=== PATIENT | female | born 1930 | race African-American/Black ===

== ENCOUNTER 2017-03-03 14:50 | Emergency (ER) | payer MEDICARE, MEDICAID ==
--- NOTE | 2017-03-03 16:08 | ER Document Report ---
ED ENT - General Mode of Arrival: Medic Information source: Patient, [facility] Records, Outside Facility Records TRAVEL OUTSIDE OF THE [place] IN LAST 30 DAYS: No - HPI Patient complains to provider of: Throat problem Onset: Other - 4 days ago Onset/Duration: Gradual, Worse Location of pain: Throat Associated symptoms: Difficulty swallowing, Sore throat <FANTASMA MARIN - Last Filed: 03/03/17 21:03> <AMENA SERRANO - Last Filed: 03/03/17 22:25> - General Chief Complaint: Sore Throat Stated Complaint: SORE THROAT Notes: Patient is an 86-year-old female presenting to the emergency department from [facility] complaining of a sore throat onset 4 days ago. Patient also admits to difficulty swallowing. Patient denies any difficulty breathing. Patient has a history of dementia. (FANTASMA MARIN) - Related Data Allergies/Adverse Reactions: No Known Allergies Allergy (Verified 03/03/17 16:03) Past Medical History - Social History Smoking Status: Unknown if Ever Smoked Frequency of alcohol use: None Drug Abuse: None Family History: Reviewed & Not Pertinent - Past Medical History Cardiac Medical History: Reports: Hx Congestive Heart Failure, Hx Coronary Artery Disease, Hx Hypertension Pulmonary Medical History: Reports: Hx Bronchitis, Hx Pneumonia - hx Endocrine Medical History: Reports: Hx Diabetes Mellitus Type 2 Renal/ Medical History: Reports: Hx Renal Insufficiency Musculoskeltal Medical History: Reports Hx Arthritis Past Surgical History: Reports: Hx Appendectomy, Hx Hysterectomy, Hx Orthopedic Surgery - L knee - Immunizations Hx Diphtheria, Pertussis, Tetanus Vaccination: No - refused <FANTASMA MARIN - Last Filed: 03/03/17 21:03> Review of Systems - Review of Systems Constitutional: No symptoms reported EENT: See HPI, Throat pain Cardiovascular: No symptoms reported Respiratory: No symptoms reported Gastrointestinal: No symptoms reported Genitourinary: No symptoms reported Female Genitourinary: No symptoms reported Musculoskeletal: No symptoms reported Skin: No symptoms reported Hematologic/Lymphatic: No symptoms reported Neurological/Psychological: No symptoms reported <FANTASMA MARIN - Last Filed: 03/03/17 21:03> Physical Exam - General General appearance: Alert - HEENT Head: Normocephalic, Atraumatic Eyes: Normal Pupils: PERRL Mouth/Lips: Other - Normal Lower dentition Pharynx: Normal. No: Erythema, Exudate, Peritonsillar abscess Neck: Neck mass - Palpable submandibular mass, no cellulitis or crepitus - Respiratory Respiratory status: No respiratory distress Breath sounds: Other - No trismus. No: Stridor - Cardiovascular Rhythm: Regular Heart sounds: Normal auscultation Murmur: No - Abdominal Inspection: Obese Tenderness: Nontender - Back Back: Normal, Nontender - Extremities General upper extremity: Normal inspection, Nontender General lower extremity: Normal inspection, Nontender - Neurological Neuro grossly intact: Yes Cognition: Normal Orientation: AAOx4 [place] Coma Scale Eye Opening: Spontaneous [place] Coma Scale Verbal: Oriented [place] Coma Scale Motor: Obeys Commands [place] Coma Scale Total: 15 Speech: Normal - Psychological Associated symptoms: Normal affect, Normal mood - Skin Skin Temperature: Warm Skin Moisture: Dry Skin Color: Normal <FANTASMA MARIN - Last Filed: 03/03/17 21:03> Course - Laboratory Result Diagrams: 03/03/17 16:40 03/03/17 16:40 <FANTASMA MARIN - Last Filed: 03/03/17 21:03> - Laboratory Result Diagrams: 03/03/17 16:40 03/03/17 16:40 <AMENA SERRANO - Last Filed: 03/03/17 22:25> - Re-evaluation Re-evalutation: 03/03/17 22:24 Patient presents emergency per with chief complaint of 4 day history of sore throat. She has palpable submandibular swelling on the right no trismus stridor or drooling and no uvular swelling or posterior pharyngeal swelling no difficulty maintaining her airway to auscultation bilaterally. No concerns for Maximiliano angina. CT scan shows submandibular swelling with adenopathy. She was given clindamycin. Airway is intact. Discharged on clindamycin call ENT in the a.m. for one to 2 day follow-up and discuss reasons for ED return sooner discuss this with family members as well (AMENA SERRANO) - Vital Signs Vital signs: Temp Pulse Resp BP Pulse Ox 97.7 F 71 20 158/88 H 97 03/03/17 18:27 03/03/17 18:27 03/03/17 18:27 03/03/17 18:27 03/03/17 18:27 - Laboratory Laboratory results interpreted by me: 03/03/17 03/03/17 16:40 16:40 RDW 14.8 H Carbon Dioxide 31 H Glucose 148 H Discharge <FANTASMA MARIN - Last Filed: 03/03/17 21:03> <AMENA SERRANO - Last Filed: 03/03/17 22:25> - Discharge Clinical Impression: enlarged right submandibular gland Condition: Stable Disposition: HOME, SELF-CARE Additional Instructions: Here your CT scan shows enlargement of your right submandibular gland measuring 3 cm in diameter with swelling of the lymph nodes. We are going to give you information to call the ear nose and throat doctor tomorrow to follow up with them in 1-2 days. In addition to that we've given you antibiotics. Return for increasing worsening or new symptoms [facility] Address: [address] [place] [id number] When you call to set up appointment, request the [place], [place] office if desired. They will be able to give you the information for that office. Prescriptions: Clindamycin HCl 300 mg PO BID #21 capsule Referrals: IBIS ALCANTAR MD [Primary Care Provider] - Follow up tomorrow Scribe Attestation: 03/03/17 21:04 (FANTASMA MARIN) 03/03/17 20:59 I personally performed the services described in the documentation reviewed the documentation recorded by my scribe in my presence and it accurately and completely records my words and actions (AMENA SERRANO) Scribe Documentation - Scribe Written by Scribe:: Fantasma Marin 03/03/2017 1607 acting as scribe for :: Kris <FANTASMA MARIN - Last Filed: 03/03/17 21:03>
[2017-03-03] MEDS ORDERED: CLINDAMYCIN 600 MG/D5W RTU 50 ML IV ONE (16:16)
[2017-03-03 16:51] LABS: ABSOLUTE EOSINOPHILS # (AUTO) 0.2 10^3/uL (0.0-0.6); ABSOLUTE LYMPHOCYTES (AUTO) 2.7 10^3/uL (0.5-4.7); ABSOLUTE MONOCYTES (AUTO) 0.7 10^3/uL (0.1-1.4); ABSOLUTE NEUT (AUTO) 6.2 10^3/uL (1.7-8.2); BASOPHILS % (AUTO) 0.3 % (0-2); EOSINOPHILS % (AUTO) 1.7 % (0-6); HEMATOCRIT 37.2 % (36.0-47.0); HEMOGLOBIN 12.6 g/dL (12.0-15.5); HGB HCT DIFFERENCE 0.6; LYMPHOCYTES % (AUTO) 27.8 % (13-45); MEAN CORPUSCULAR HEMOGLOBIN 29.9 pg (27.0-33.4); MEAN CORPUSCULAR HGB CONC 33.8 g/dL (32.0-36.0); MEAN CORPUSCULAR VOLUME 88 fl (80-97); MONOCYTES % (AUTO) 6.9 % (3-13); RED BLOOD COUNT 4.21 10^6/uL (3.72-5.28); RED CELL DISTRIBUTION WIDTH 14.8 % (11.5-14.0); SEGMENTED NEUTROPHILS % (AUTO) 63.3 % (42-78); WHITE BLOOD COUNT 9.8 10^3/uL (4.0-10.5)
[2017-03-03 17:16] LABS: ANION GAP 9 (5-19); BLOOD UREA NITROGEN 14 mg/dL (7-20); CALCIUM 9.3 mg/dL (8.4-10.2); CARBON DIOXIDE 31 mmol/L (22-30); CHLORIDE 104 mmol/L (98-107); CREATININE RESULT 0.82 mg/dL (0.52-1.25); GLUCOSE 148 mg/dL (75-110); POTASSIUM 4.4 mmol/L (3.6-5.0); SODIUM 144.3 mmol/L (137-145)
[2017-03-04 01:26] VITALS: BP 149/87
== END 2017-03-04 01:10 | disposition home or self-care (01) ==
LOC: ER 14:50
DX: R59.0 Localized enlarged lymph nodes (principal); J02.9 Acute pharyngitis, unspecified; R13.10 Dysphagia, unspecified; I25.10 Atherosclerotic heart disease of native coronary artery without angina pectoris; E11.9 Type 2 diabetes mellitus without complications; I10 Essential (primary) hypertension
CPT/HCPCS: 36415; 70491; 80048; 85025; 87070; 87880; 96365; 99284

== ENCOUNTER 2017-03-09 12:20 | Emergency (ER) | payer MEDICARE, MEDICAID ==
[2017-03-09] MEDS ORDERED: DEXAMETHASONE SOD PHOS INJ 10 MG/1 ML VIAL IM ONE (12:37)
--- NOTE | 2017-03-09 12:40 | ER Document Report ---
ED General - General Chief Complaint: Sore Throat Stated Complaint: SORE THROAT Time Seen by Provider: 03/09/17 12:29 TRAVEL OUTSIDE OF THE U.S. IN LAST 30 DAYS: No - Related Data Allergies/Adverse Reactions: No Known Allergies Allergy (Verified 03/03/17 16:03) Past Medical History - Social History Family History: Reviewed & Not Pertinent - Past Medical History Cardiac Medical History: Reports: Hx Congestive Heart Failure, Hx Coronary Artery Disease, Hx Hypertension Pulmonary Medical History: Reports: Hx Bronchitis, Hx Pneumonia - hx Endocrine Medical History: Reports: Hx Diabetes Mellitus Type 2 Renal/ Medical History: Reports: Hx Renal Insufficiency Musculoskeltal Medical History: Reports Hx Arthritis Past Surgical History: Reports: Hx Appendectomy, Hx Hysterectomy, Hx Orthopedic Surgery - L knee - Immunizations Hx Diphtheria, Pertussis, Tetanus Vaccination: No - refused
--- NOTE | 2017-03-09 12:48 | ER Document Report ---
ED General - General Chief Complaint: Sore Throat Stated Complaint: SORE THROAT Time Seen by Provider: 03/09/17 12:29 TRAVEL OUTSIDE OF THE [place] IN LAST 30 DAYS: No - HPI Patient complains to provider of: sore throat Notes: Patient coming in from local longterm facility for sore throat. Patient recently seen found to have a large right submandibular gland and has ENT appointment on . Unclear what patient return to the ER however EMS states still complaining of sore throat so she went swallowing her medications. We're contacted by the patient's family before patient arrived states patient has implemented do not wish for any further workup to be done for the patient be transferred back to longterm. Upon my evaluation patient shows no signs of trismus swallowing her oral secretions no signs of airway compromise. Patient is speaking in a normal tone of voice and only complaining that she is cold and requesting a blanket. - Related Data Allergies/Adverse Reactions: No Known Allergies Allergy (Verified 03/03/17 16:03) Past Medical History - Social History Smoking Status: Never Smoker Chew tobacco use (# tins/day): No Frequency of alcohol use: None Drug Abuse: None Family History: Reviewed & Not Pertinent - Past Medical History Cardiac Medical History: Reports: Hx Congestive Heart Failure, Hx Coronary Artery Disease, Hx Hypertension Pulmonary Medical History: Reports: Hx Bronchitis, Hx Pneumonia - hx Endocrine Medical History: Reports: Hx Diabetes Mellitus Type 2 Renal/ Medical History: Reports: Hx Renal Insufficiency Musculoskeltal Medical History: Reports Hx Arthritis Past Surgical History: Reports: Hx Appendectomy, Hx Hysterectomy, Hx Orthopedic Surgery - L knee - Immunizations Hx Diphtheria, Pertussis, Tetanus Vaccination: No - refused Review of Systems - Review of Systems Constitutional: No symptoms reported EENT: Throat pain Cardiovascular: No symptoms reported Respiratory: No symptoms reported Gastrointestinal: No symptoms reported Genitourinary: No symptoms reported Female Genitourinary: No symptoms reported Musculoskeletal: No symptoms reported Skin: No symptoms reported Hematologic/Lymphatic: No symptoms reported Neurological/Psychological: No symptoms reported Physical Exam - Vital signs Interpretation: Normal - General General appearance: Appears well, Alert - HEENT Head: Normocephalic, Atraumatic Eyes: Normal Eyelashes: Normal Pupils: PERRL Ears: Normal External canal: Normal Tympanic membrane: Normal Nasal: Normal Pharynx: Normal Neck: Normal Notes: Patient was seen and evaluated a large right submandibular gland palpated no signs of skin changes no signs of Maximiliano's angina no elevation home. Or airway is patent signs of respiratory are airway compromise. - Respiratory Respiratory status: No respiratory distress Chest status: Nontender Breath sounds: Normal Chest palpation: Normal - Cardiovascular Rhythm: Regular Heart sounds: Normal auscultation Murmur: No - Abdominal Inspection: Normal Distension: No distension Bowel sounds: Normal Tenderness: Nontender Organomegaly: No organomegaly - Back Back: Normal, Nontender - Extremities General upper extremity: Normal inspection, Nontender, Normal color, Normal ROM , Normal temperature General lower extremity: Normal inspection, Nontender, Normal color, Normal ROM , Normal temperature, Normal weight bearing. No: Cristina's sign - Neurological Neuro grossly intact: Yes Cognition: Normal Orientation: AAOx4 [place] Coma Scale Eye Opening: Spontaneous [place] Coma Scale Verbal: Oriented [place] Coma Scale Motor: Obeys Commands [place] Coma Scale Total: 15 Speech: Normal Motor strength normal: LUE, RUE, LLE, RLE Sensory: Normal - Psychological Associated symptoms: Normal affect, Normal mood - Skin Skin Temperature: Warm Skin Moisture: Dry Skin Color: Normal Course - Re-evaluation Re-evalutation: 03/09/17 18:38 Per family wishes no other studies were performed. Patient does not seem to be any obvious distress at this time. Patient was given a dose Decadron to help decrease swelling. Patient was discharged back to the longterm follow-up with ENT as scheduled. Discharge - Discharge Clinical Impression: Enlargement of submandibular gland, Sore throat Condition: Good Disposition: HOME, SELF-CARE Additional Instructions: Patient was seen and evaluated today. No acute distress. Patient was able to tolerate oral here. There is no signs of any choking. Patient does complain of sore throat we will give the patient a dose of steroids to aid her sore throat. Patient did recently have a workup performed here showing enlargement of the right submandibular gland and should be currently taking clindamycin. We did receive a phone call from the patient's family member requesting no further workup be given as a the patient already has an ENT referral. At this time I feel this will be the appropriate course of action to wait for ENT referral. The dose of Decadron 10 mg should help out with the patient sore throat.
== END 2017-03-09 14:30 | disposition home or self-care (01) ==
LOC: ER 12:20
DX: R59.0 Localized enlarged lymph nodes (principal); J02.9 Acute pharyngitis, unspecified; E11.9 Type 2 diabetes mellitus without complications; I50.9 Heart failure, unspecified; I11.0 Hypertensive heart disease with heart failure; I25.10 Atherosclerotic heart disease of native coronary artery without angina pectoris; Z90.710 Acquired absence of both cervix and uterus
CPT/HCPCS: 99282; 96372; J1100

== ENCOUNTER 2017-06-08 00:22 | Emergency (ER) | payer MEDICARE, MEDICAID ==
[2017-06-08] MEDS ORDERED: LIDOCAINE 1% INJ-PF (10 MG/ML) 30 ML SDV NEB ONE (00:24)
[2017-06-08] MEDS ORDERED: ALBUTEROL SULFATE 0.083% NEB 2.5 MG/3 ML AMPUL NEB ONE (00:27)
[2017-06-08] MEDS ORDERED: ONDANSETRON HCL INJ/PF 4 MG/2 ML SDV IV ONE (00:29)
--- NOTE | 2017-06-08 00:29 | ER Document Report ---
ED General - General Stated Complaint: CHOKING Time Seen by Provider: 06/08/17 00:23 Notes: Patient is a pleasant 86-year-old female has a history of dementia. She has a history of difficulty swallowing. She is at the senior living. She is on a pur ed diet. She apparently choked on the drinking pured liquids and then aspirated and start coughing and choking. She is therefore brought to the ER. She currently complains of pain into her throat. She has a normal SPO2 on room air when paramedics arrived. She continues to have a normal SPO2. No other complaints at this time. No recent fevers or infections. History is mostly obtained from the paramedics. Patient is only able to answer some questions due to dementia. TRAVEL OUTSIDE OF THE [place] IN LAST 30 DAYS: No - Related Data Allergies/Adverse Reactions: No Known Allergies Allergy (Verified 03/03/17 16:03) Past Medical History - Social History Smoking Status: Unknown if Ever Smoked Frequency of alcohol use: None Drug Abuse: None Family History: Reviewed & Not Pertinent - Past Medical History Cardiac Medical History: Reports: Hx Congestive Heart Failure, Hx Coronary Artery Disease, Hx Hypertension Pulmonary Medical History: Reports: Hx Bronchitis, Hx Pneumonia - hx Endocrine Medical History: Reports: Hx Diabetes Mellitus Type 2 Renal/ Medical History: Reports: Hx Renal Insufficiency Musculoskeltal Medical History: Reports Hx Arthritis Past Surgical History: Reports: Hx Appendectomy, Hx Hysterectomy, Hx Orthopedic Surgery - L knee - Immunizations Hx Diphtheria, Pertussis, Tetanus Vaccination: No - refused Review of Systems - Review of Systems Notes: My Normal Review Basic REVIEW OF SYSTEMS: CONSTITUTIONAL : Denies fever, chills, or sweats. Denies recent illness. RESPIRATORY: Cough. Possible aspiration GASTROINTESTINAL: Denies abdominal pain. Denies nausea, vomiting, or diarrhea. Denies constipation. Last BM: . LMP: MUSCULOSKELETAL: Denies neck or back pain or joint pain or swelling. SKIN: Denies rash or skin lesions. NEUROLOGICAL: Denies altered mental status or loss of consciousness. Denies headache. Denies weakness or paralysis or loss of use of either side. Denies problems with gait or speech. Denies sensory or motor loss. ALL OTHER SYSTEMS REVIEWED AND NEGATIVE. Physical Exam - Vital signs Vitals: Resp Pulse Ox 18 96 06/08/17 00:24 06/08/17 00:24 - Notes Notes: General Appearance: Well nourished, alert, cooperative, no acute distress, mild obvious discomfort. Vitals: reviewed, See vital signs table. Head: no swelling or tenderness to the head Eyes: PERRL, EOMI, Conjuctiva clear Mouth: No decreasd moisture Throat: No tonsillar inflammation, No airway obstruction, No lymphadenopathy Neck: Supple, no neck tenderness Lungs: No wheezing, No rales, No rhonci, No accessory muscle use, good air exchange bilaterally. Heart: Normal rate, Regular rythm, No murmur, no rub Abdomen: Normal BS, soft, No rigidity, No abdominal tenderness, No guarding, no rebound, no abdominal masses, no organomegaly Extremities: strength 5/5 in all extremities, good pulses in all extremities, no swelling or tenderness in the extremities, no edema. Skin: warm, dry, appropriate color, no rash Neuro: speech clear, oriented x 2, demented affect, responds appropriately to some questions. Cranial nerves 2 through 12 are intact. Course - Re-evaluation Re-evalutation: 06/08/17 01:34 Patient had a wheezing but was having some intermittent gagging appear to have discomfort in her throat when he first arrived. I give albuterol treatment which initially helped but now she started having some intermittent gagging a.m. This is by no means anywhere in frequency when she first arrived. I will give her racemic epi to see if this helps dry up some secretions will hopefully help with her gagging. She has no signs of of stridor. She has no increased work of breathing. 06/08/17 04:05 Much improved. She looks well. She has had no further gagging or choking. I explained to her and her family her chest x-ray showed no evidence of aspiration or lung snyder are clear and the proximal she is safe to be discharged back to senior living. Family agrees with plan and patient will be discharged home. Encouraged to return here if the any wheezing, difficulty breathing, or if she feels unwell. Dictation of this chart was performed using voice recognition software; therefore, there may be some unintended grammatical errors. - Vital Signs Vital signs: Temp Pulse Resp BP Pulse Ox 98.7 F 78 15 124/96 H 94 06/08/17 00:33 06/08/17 00:33 06/08/17 03:01 06/08/17 03:01 06/08/17 03:01 Discharge - Discharge Clinical Impression: Aspiration into airway Qualifiers: Encounter type: initial encounter Qualified Code(s): T17.908A - Unspecified foreign body in respiratory tract, part unspecified causing other injury, initial encounter Condition: Good Disposition: HOME, SELF-CARE Additional Instructions: Please use the albuterol nebulizer if Mrs. Chapin has recurrent coughing. Please return to the ER immediately if Mrs. Chapin has difficulty breathing, fevers, or appears unwell. Prescriptions: Albuterol Sulfate [Albuterol Sulfate 2.5mg/3 mL] 2.5 mg IH Q6 PRN #10 vial PRN Reason: Referrals: IBIS ALCANTAR MD [Primary Care Provider] - Follow up as needed
[2017-06-08] MEDS ORDERED: RACEPINEPHRINE HCL 2.25% NEB 0.5 ML AMPUL NEB ONE (01:27)
--- NOTE | 2017-06-08 01:43 | RADIOLOGY REPORT (SQ) ---
EXAM DESCRIPTION: CHEST SINGLE VIEW COMPLETED DATE/TIME: 06/08/2017 1:25 am REASON FOR STUDY: aspiration COMPARISON: 05/20/2016. EXAM PARAMETERS: NUMBER OF VIEWS: One view. TECHNIQUE: Single frontal radiographic view of the chest acquired. RADIATION DOSE: NA LIMITATIONS: None. FINDINGS: LUNGS AND PLEURA: Moderate lung volumes. Pulmonary vascular congestion. Minimal left low er lobar atelectasis or scar. MEDIASTINUM AND HILAR STRUCTURES: No masses. Contour normal. HEART AND VASCULAR STRUCTURES: Heart normal in size. Atherosclerosis. BONES: No acute findings. HARDWARE: None in the chest. OTHER: No other significant finding. IMPRESSION: No acute cardiopulmonary findings. TECHNICAL DOCUMENTATION: JOB ID: [id number]
[2017-06-08] MEDS ORDERED: OXYCODONE-ACETAMINOPHEN 5-325 MG TABLET PO ONE (05:02)
[2017-06-08 07:43] VITALS: BP 146/89
== END 2017-06-08 07:43 | disposition home or self-care (01) ==
LOC: ER 00:22
DX: T17.928A Food in respiratory tract, part unspecified causing other injury, initial encounter (principal); R06.2 Wheezing; R07.0 Pain in throat; X58.XXXA Exposure to other specified factors, initial encounter; Y92.129 Unspecified place in nursing home as the place of occurrence of the external cause; F03.90 Unspecified dementia, unspecified severity, without behavioral disturbance, psychotic disturbance, mood disturbance, and anxiety; I50.9 Heart failure, unspecified; I25.10 Atherosclerotic heart disease of native coronary artery without angina pectoris; I11.0 Hypertensive heart disease with heart failure; E11.9 Type 2 diabetes mellitus without complications; Z90.710 Acquired absence of both cervix and uterus
CPT/HCPCS: 94640 ×2; 96374; 99285; 71010; A9270 ×2; J2405; J3490

== ENCOUNTER 2018-02-04 09:24 | Inpatient (IN) | payer MEDICARE, MEDICAID ==
[2018-02-04] MEDS ORDERED: NORMAL SALINE 1000 ML 1,000 ML IV ONE (09:51)
--- NOTE | 2018-02-04 09:57 | ER Document Report ---
ED General - General Chief Complaint: Weakness Stated Complaint: WEAKNESS Time Seen by Provider: 02/04/18 09:34 Notes: 87-year-old female was sent from the correction for weakness and altered mental status. The patient was very weak and less responsive than normal this morning. She would not take her medications. The patient denies any complaints though is not very verbal. There is been no history of any fevers she had one episode of vomiting yesterday. No hematuria or dysuria no falls no trauma no head injury. The patient denies any complaints but is very sleepy. Difficult to get a full history from the patient. TRAVEL OUTSIDE OF THE [place] IN LAST 30 DAYS: No - Related Data Allergies/Adverse Reactions: No Known Allergies Allergy (Verified 02/04/18 09:35) Past Medical History - Social History Smoking Status: Unknown if Ever Smoked Family History: Reviewed & Not Pertinent - Past Medical History Cardiac Medical History: Reports: Hx Congestive Heart Failure, Hx Coronary Artery Disease, Hx Hypertension Pulmonary Medical History: Reports: Hx Bronchitis, Hx Pneumonia - hx Endocrine Medical History: Reports: Hx Diabetes Mellitus Type 2 Renal/ Medical History: Reports: Hx Renal Insufficiency Musculoskeltal Medical History: Reports Hx Arthritis Past Surgical History: Reports: Hx Appendectomy, Hx Hysterectomy, Hx Orthopedic Surgery - L knee - Immunizations Hx Diphtheria, Pertussis, Tetanus Vaccination: No - refused Review of Systems - Review of Systems Constitutional: Malaise, Weakness Cardiovascular: denies: Chest pain, Dyspnea Gastrointestinal: Nausea, Vomiting Genitourinary: denies: Dysuria Skin: denies: Rash Neurological/Psychological: Confusion, Weakness. denies: Headaches -: Yes All other systems reviewed and negative Physical Exam - Vital signs Vitals: Pulse Resp BP Pulse Ox 105 H 14 136/81 H 95 02/04/18 09:35 02/04/18 09:35 02/04/18 09:35 02/04/18 09:35 - Notes Notes: GENERAL_APPEARANCE: well_nourished, very somnolent VITALS: reviewed, see vital signs table. HEAD: no_swelling\tenderness on the head. EYES: PERRL, EOMI, conjunctiva_clear. NOSE: no_nasal_discharge. MOUTH: Dry mucous membranes THROAT: no_throat_inflammation, no_airway_obstruction. no_lymphadenopathy NECK: supple, negative JVD, (-)thyromegaly. CHEST_WALL: No crepitus or subcutaneous emphysema LUNGS: no_wheezing, no_rales, no_rhonchi, (-)accessory muscle use, good air exchange bilateral. HEART: normal_rate, normal_rhythm, normal_S1, normal_S2, (-)S3, (-)S4, no_ murmur, no_rub. ABDOMEN: normal_BS, soft, no_abd_tenderness, (-)guarding, (-)rebound, no_ organomegaly, no_abd_masses. EXTREMITIES:good pulses in all_extremities, no_swelling\tenderness in the extremities, 1+_edema. SKIN: warm, dry, good_color, no_rash. MENTAL_STATUS: Will respond to painful stimuli and answer 1 word answers yes or no. But otherwise falls back to sleep. Very somnolent NEURO: Cranial nerves II through XII appear intact is no facial asymmetry or extraocular movement palsies. Withdraws to pain in all 4 extremities no signs of any motor dysfunction, Babinski sign is negative bilateral lower extremities unable to test cerebellar signs at this time Course - Re-evaluation Re-evalutation: 02/04/18 09:57 Patient arrives with altered mental status. She is very somnolent. Unknown really what her baseline is working her from an altered mental status standpoint clinically she looks dry will give her a liter of IV fluid check for any signs of infection. CT scan the brain to look for any intracranial abnormalities. ` 02/04/18 13:26 Patient is very dehydrated with a elevated sodium and has UTI. Patient was given IV Rocephin IV fluids. Has responded well to IV fluid boluses will give her some additional IV fluids. I have spoke with the on-call Dr Parker for Dr. Richardson. They will admit the patient to the hospital. - Vital Signs Vital signs: Temp Pulse Resp BP Pulse Ox 105 H 14 136/81 H 95 02/04/18 09:35 02/04/18 09:35 02/04/18 09:35 02/04/18 09:35 - Laboratory Result Diagrams: 02/04/18 10:35 02/04/18 11:54 Laboratory results interpreted by me: 02/04/18 02/04/18 02/04/18 10:35 10:35 11:54 RDW 16.1 H Sodium 163.8 H Chloride 121 H BUN 62 H Creatinine 1.80 H Est GFR ( Amer) 32 L Est GFR (Non-Af Amer) 26 L Glucose 73 L Calcium 10.8 H Magnesium 3.1 H Direct Bilirubin 0.7 H Creatine Kinase 21 L Urine Protein 100 H Urine Ketones TRACE H Urine Blood SMALL H Urine Urobilinogen 2.0 H Ur Leukocyte Esterase LARGE H - EKG Interpretation by Me EKG shows normal: Sinus rhythm Rhythm: NSR Additional EKG results interpreted by me: 02/04/18 13:26 EKG shows a normal sinus rhythm at [address] abnormalities. Similar old EKG Discharge - Discharge Clinical Impression: Acute hypernatremia, Dehydration UTI (urinary tract infection) Qualifiers: Urinary tract infection type: acute cystitis Hematuria presence: without hematuria Qualified Code(s): N30.00 - Acute cystitis without hematuria Condition: Fair Disposition: ADMITTED INPATIENT Admitting Provider: Keith Unit Admitted: Medical Floor
[2018-02-04 11:03] LABS: INTERNATIONAL RATION (INR) 0.99; PROTHROMBIN TIME 13.6 SEC (11.4-15.4)
--- NOTE | 2018-02-04 11:03 | RADIOLOGY REPORT (SQ) ---
EXAM DESCRIPTION: CT HEAD WITHOUT COMPLETED DATE/TIME: 02/04/2018 10:54 am REASON FOR STUDY: ams COMPARISON: 05/20/2016 TECHNIQUE: Axial images acquired through the brain without intravenous contrast. Images reviewed wi th bone, brain and subdural windows. Images stored on PACS. All CT scanners at this facility use dose modulation, iterative reconstruction, and/or weight based d osing when appropriate to reduce radiation dose to as low as reasonably achievable (ALARA). [facility]: Dose Right [facility]: CareDose [facility]: Dose Right [facility]: Teradose 4D [facility]: Smart Qriket RADIATION DOSE: CT Rad equipment meets quality standard of care and radiation dose reduction techniq ues were employed. CTDIvol: 53.2 mGy. DLP: 1017 mGy-cm.mGy. LIMITATIONS: None. FINDINGS: VENTRICLES: Prominent. CEREBRUM: No masses. No hemorrhage. No midline shift. Areas of low density in the white matter mos t likely due to chronic micro-vascular ischemic change. No evidence for acute infarction. CEREBELLUM: No masses. No hemorrhage. No alteration of density. No evidence for acute infarction. EXTRAAXIAL SPACES: Age-related involutional change. No fluid collections. No masses. ORBITS AND GLOBE: No intra- or extraconal masses. Normal contour of globe without masses. CALVARIUM: No fracture. PARANASAL SINUSES: No fluid or mucosal thickening. SOFT TISSUES: No mass or hematoma. OTHER: No other significant finding. IMPRESSION: CHRONIC CHANGES OF ATROPHY AND MICROVASCULAR ISCHEMIA. NO ACUTE PROCESS. EVIDENCE OF ACUTE STROKE: NO. TECHNICAL DOCUMENTATION: JOB ID: [id number] Quality ID # [id number]: Final reports with documentation of one or more dose reduction techniques (e.g., Au tomated exposure control, adjustment of the mA and/or kV according to patient size, use of iterative reconstruction technique) 2010 [employer]- All Rights Reserved Reading location - IP/workstation name: [email or web address]
[2018-02-04 11:07] LABS: ABSOLUTE EOSINOPHILS # (AUTO) 0.1 10^3/uL (0.0-0.6); ABSOLUTE LYMPHOCYTES (AUTO) 2.2 10^3/uL (0.5-4.7); ABSOLUTE MONOCYTES (AUTO) 0.8 10^3/uL (0.1-1.4); ABSOLUTE NEUT (AUTO) 5.7 10^3/uL (1.7-8.2); BASOPHILS % (AUTO) 0.5 % (0-2); EOSINOPHILS % (AUTO) 0.6 % (0-6); HEMATOCRIT 45.4 % (36.0-47.0); HEMOGLOBIN 14.5 g/dL (12.0-15.5); LYMPHOCYTES % (AUTO) 24.8 % (13-45); MEAN CORPUSCULAR HEMOGLOBIN 28.6 pg (27.0-33.4); MEAN CORPUSCULAR VOLUME 89 fl (80-97); MONOCYTES % (AUTO) 8.8 % (3-13); PLATELET COUNT 245 10^3/uL (150-450); RED BLOOD COUNT 5.08 10^6/uL (3.72-5.28); RED CELL DISTRIBUTION WIDTH 16.1 % (11.5-14.0); SEGMENTED NEUTROPHILS % (AUTO) 65.3 % (42-78); TOTAL CELLS COUNTED % (AUTO) 100 %; WHITE BLOOD COUNT 8.7 10^3/uL (4.0-10.5)
[2018-02-04 11:08] LABS: APPEARANCE,URINE CLOUDY; BILIRUBIN,URINE NEGATIVE (NEGATIVE); COLOR,URINE AMBER; GLUCOSE, URINE NEGATIVE (NEGATIVE); KETONES,URINE TRACE mg/dL (NEGATIVE); LEUKOCYTE ESTERASE,URINE LARGE (NEGATIVE); NITRITE,URINE NEGATIVE (NEGATIVE); PROTEIN,URINE 100 mg/dL (NEGATIVE); URINE SPECIFIC GRAVITY 1.016
--- NOTE | 2018-02-04 11:15 | RADIOLOGY REPORT (SQ) ---
EXAM DESCRIPTION: CHEST SINGLE VIEW COMPLETED DATE/TIME: 02/04/2018 11:01 am REASON FOR STUDY: ams COMPARISON: June 2017 EXAM PARAMETERS: NUMBER OF VIEWS: One view. TECHNIQUE: Single frontal radiographic view of the chest acquired. RADIATION DOSE: NA LIMITATIONS: None. FINDINGS: LUNGS AND PLEURA: No opacities, masses or pneumothorax. No pleural effusion. MEDIASTINUM AND HILAR STRUCTURES: There is some widening of the superior mediastinum unchanged from t he previous study most consistent with a tortuous brachiocephalic vessels. HEART AND VASCULAR STRUCTURES: Heart normal in size. Normal vasculature. BONES: No acute findings. HARDWARE: None in the chest. OTHER: No other significant finding. IMPRESSION: NO ACUTE RADIOGRAPHIC FINDING IN THE CHEST. TECHNICAL DOCUMENTATION: JOB ID: [id number] [employer]- All Rights Reserved Reading location - IP/workstation name: [email or web address]
[2018-02-04] MEDS ORDERED: CEFTRIAXONE 1 GM/D5W RTU 1 GM/50 ML RTUPB IV ONE (11:35)
[2018-02-04] MEDS ORDERED: CEFTRIAXONE SODIUM 1,000 MG in NORMAL SALINE 100 ML IV ONE (12:00)
[2018-02-04 12:32] LABS: ALANINE AMINOTRANSFERASE 41 U/L (9-52); ALBUMIN 4.3 g/dL (3.5-5.0); ALKALINE PHOSPHATASE 104 U/L (38-126); ASPARTATE AMINO TRANSFERASE 27 U/L (14-36); BILIRUBIN,DIRECT 0.7 mg/dL (0.0-0.4); BILIRUBIN,TOTAL 0.9 mg/dL (0.2-1.3); BLOOD UREA NITROGEN 62 mg/dL (7-20); CALCIUM 10.8 mg/dL (8.4-10.2); CREATINE KINASE 21 U/L (30-135); GLUCOSE 73 mg/dL (75-110); POTASSIUM 3.6 mmol/L (3.6-5.0)
[2018-02-04 12:38] LABS: CARBON DIOXIDE 24 mmol/L (22-30); CHLORIDE 121 mmol/L (98-107); SODIUM 163.8 mmol/L (137-145)
[2018-02-04 12:39] LABS: ANION GAP 19 (5-19)
[2018-02-04] MEDS ORDERED: NORMAL SALINE 1000 ML 1,000 ML IV PRN (14:27)
[2018-02-04] MEDS ORDERED: ENOXAPARIN SODIUM INJ 30 MG/0.3 ML DISP.SYRIN SUBCUT ONE (16:00)
[2018-02-04] MEDS ORDERED: HYDROCORTISONE TOP PRN (18:52)
[2018-02-04] MEDS ORDERED: LIDOCAINE TOP PRN (18:52)
[2018-02-04] MEDS ORDERED: IPRATROPIUM/ALBUTEROL 0.5-2.5 MG/3 ML AMPUL NEB PRN (18:52)
[2018-02-04] MEDS ORDERED: OXYCODONE-ACETAMINOPHEN 5-325 MG TABLET PO PRN (18:52)
[2018-02-04] MEDS ORDERED: INSULIN LISPRO 100 UNIT/ML 3 ML VIAL SUBCUT SCH (19:00)
[2018-02-04] MEDS ORDERED: DONEPEZIL HCL 5 MG TABLET PO ONE (20:00)
[2018-02-04] MEDS ORDERED: DEXTROSE 40% GEL 15 GM TUBE PO PRN (20:04)
[2018-02-04] MEDS ORDERED: DEXTROSE 50%-WATER SYRINGE 25 GM/50 ML DOSE IV PRN (20:04)
[2018-02-04] MEDS ORDERED: DEXTROSE 40% GEL 15 GM TUBE X 2 PO PRN (20:04)
[2018-02-04] MEDS ORDERED: GLUCAGON,HUMAN RECOMB 1 MG INJ IM PRN (20:04)
[2018-02-04] MEDS ORDERED: DEXTROSE 50%-WATER SYRINGE 12.5 GM/25 ML DOSE IV PRN (20:04)
--- NOTE | 2018-02-04 20:38 | PDOC H&P ---
History of Present Illness Admission Date/PCP: 02/04/18 13:43 IBIS ALCANTAR MD Patient complains of: Weakness and not responding as usual History of Present Illness: DANIEL PHAM is a 87 year old female patient of Dr Alcantar and resident at local longterm who was brought to the ED by medic due to facility staff reported change in her mental status and worsening generalized weakness. Daughter at bedside narrated that patient have been refusing food and medication for several days. They were unable to give any more details except her listed morbidities. Thee was recent episode of UTI that was treated at the facility. No reported nausea, vomiting, fever or chills. Patient occasionally take her medication with apple sauce and on thicken liquid consistency. There was episode of vomiting yesterday. No reported hematuria or dysuria. No reported fall, trauma, or head injury. Her morbidities include HTN, CAD, Congestive Heart Failure, Coronary Artery Disease, Diabetes Mellitus Type 2, Bronchitis, Osteoarthritis, and renal insufficiency. Past Medical History Cardiac Medical History: Reports: Congestive Heart Failure, Coronary Artery Disease, Hypertension Pulmonary Medical History: Reports: Bronchitis, Pneumonia - hx Endocrine Medical History: Reports: Diabetes Mellitus Type 2 Musculoskeltal Medical History: Reports: Arthritis Hematology: Reports: Anemia Past Surgical History Past Surgical History: Reports: Appendectomy, Hysterectomy, Orthopedic Surgery - L knee Social History Smoking Status: Unknown if Ever Smoked Frequency of Alcohol Use: None Hx Recreational Drug Use: No Hx Prescription Drug Abuse: No - Advance Directive Resuscitation Status: Do Not Resuscitate - I had extensive discussion with daughters at bedside and presently family expressed patient's wish for do not resuscitate status. Family History Family History: Reviewed & Not Pertinent Parental Family History Reviewed: Yes Children Family History Reviewed: Yes Sibling(s) Family History Reviewed.: Yes Medication/Allergy Home Medications: Acetaminophen [Tylenol Extra Strength 500 mg Tablet] 1 tab PO Q6 02/04/18 Amlodipine Besylate [Norvasc 10 mg Tablet] 10 mg PO DAILY 02/04/18 Anamantle Hc(Lidocaine/Hydrocortisone) 3%/0.5% 1 applic TOP TIDP PRN 02/04/18 Aspirin [Aspirin 81 mg Chewable Tablet] 81 mg PO DAILY 02/04/18 Docusate Sodium [Colace 100 mg Capsule] 100 mg PO DAILY 02/04/18 Donepezil HCl [Aricept] 10 mg PO QHS 02/04/18 Furosemide [Lasix 40 mg Tablet] 40 mg PO QAM 02/04/18 Insulin Glargine,Hum.rec.anlog [Lantus Solostar] 20 unit SQ QHS 02/04/18 Insulin Lispro [Humalog Insulin 100 Unit/1 ml 3 ml Vial] 0 unit SUBCUT .SLD SCALE 02/04/18 Ipratropium/Albuterol Sulfate [Duoneb 3 ml Ampul] 3 ml NEB RTQ6HP PRN 02/04/18 Latanoprost [Xalatan 0.005% Oph Soln 2.5 ml] 1 drop OU QHS 02/04/18 Levetiracetam 500 mg PO Q12 02/04/18 Lubiprostone [Amitiza 24 Mcg Capsule] 24 mcg PO BID 02/04/18 Memantine HCl [Namenda Xr] 28 mg PO DAILY 02/04/18 Metoprolol Succinate [Toprol Xl 25 mg Tab.sr] 25 mg PO DAILY 02/04/18 Omeprazole 20 mg PO Q6AM 02/04/18 Oxycodone HCl/Acetaminophen [Percocet 5-325 mg Tablet] 1 tab PO Q12HP PRN Polyvinyl Alcohol [Liquitears 1.4% Ophth Soln 15 ml] 2 drop OU Q12 02/04/18 Sitagliptin Phosphate [Januvia 50 mg Tablet] 50 mg PO QAM 02/04/18 Valsartan [Diovan] 320 mg PO DAILY 02/04/18 Allergies/Adverse Reactions: No Known Allergies Allergy (Verified 02/04/18 09:35) Review of Systems ROS unobtainable: Due to mental status Physical Exam Vital Signs: Temp Pulse Resp BP Pulse Ox 97.4 F 93 14 112/77 99 02/04/18 15:33 02/04/18 15:33 02/04/18 15:33 02/04/18 15:33 02/04/18 15:33 Intake & Output 02/03/18 02/04/18 02/05/18 06:59 06:59 06:59 Weight 110 kg General appearance: PRESENT: cooperative, obese Head exam: PRESENT: atraumatic, normocephalic Eye exam: PRESENT: conjunctiva pink, EOMI, PERRLA. ABSENT: scleral icterus Mouth exam: PRESENT: dry mucosa Respiratory exam: PRESENT: clear to auscultation christen, decreased breath sounds - at lung bases Cardiovascular exam: PRESENT: RRR. ABSENT: diastolic murmur, rubs, systolic murmur Vascular exam: PRESENT: normal capillary refill. ABSENT: pallor GI/Abdominal exam: PRESENT: normal bowel sounds, soft. ABSENT: distended, guarding, mass, organolmegaly, rebound, tenderness Rectal exam: PRESENT: deferred Extremities exam: ABSENT: pedal edema Musculoskeletal exam: PRESENT: deformity - related to joint involvement with arthritis Neurological exam: PRESENT: altered - but arousable to painful stimuli Psychiatric exam: PRESENT: other - use hand to wave off food Skin exam: PRESENT: dry, warm Results Laboratory Results: I reviewed her lab results on [facility] and form significant part of my medical decision making. Impressions: Chest X-Ray 02/04/18 09:50 IMPRESSION: NO ACUTE RADIOGRAPHIC FINDING IN THE CHEST. Head CT 02/04/18 09:50 IMPRESSION: CHRONIC CHANGES OF ATROPHY AND MICROVASCULAR ISCHEMIA. NO ACUTE PROCESS. EVIDENCE OF ACUTE STROKE: NO. Assessment & Plan - Diagnosis (1) Acute hypernatremia Is this a current diagnosis for this admission?: Yes Plan: See covering admitting attending physician orders. (2) Dehydration Is this a current diagnosis for this admission?: Yes Plan: See covering admitting attending physician orders. (3) UTI (urinary tract infection) Qualifiers: Urinary tract infection type: acute cystitis Hematuria presence: without hematuria Qualified Code(s): N30.00 - Acute cystitis without hematuria Is this a current diagnosis for this admission?: Yes Plan: See covering admitting attending physician orders. (4) HTN (hypertension) Qualifiers: Hypertension type: essential hypertension Qualified Code(s): I10 - Essential (primary) hypertension Is this a current diagnosis for this admission?: Yes Plan: See covering admitting attending physician orders. (5) SACHIN (acute kidney injury) Is this a current diagnosis for this admission?: Yes Plan: See covering admitting attending physician orders. (6) Diabetes mellitus type 2 in obese Is this a current diagnosis for this admission?: Yes Plan: See covering admitting attending physician orders. - Time Time Spent: 50 to 70 Minutes Medications reviewed and adjusted accordingly: Yes Anticipated discharge: SNF Within: Other - Inpatient Certification Based on my medical assessment, after consideration of the patient's comorbidities, presenting symptoms, or acuity I expect that the services needed warrant INPATIENT care.: Yes I certify that my determination is in accordance with my understanding of Medicare's requirements for reasonable and necessary INPATIENT services [42 CFR 412.3e].: Yes Medical Necessity: Need Close Monitoring Due to Risk of Patient Decompensation, Need For IV Fluids, Need For Continuous Telemetry Monitoring, Need for IV Antibiotics, Risk of Complication if Not Cared For in Hospital Post Hospital Care: D/C or Transfer Summary - Plan Summary Plan Summary: See covering admitting attending physician orders.
--- NOTE | 2018-02-04 21:01 | EKG REPORT ---
SEVERITY:- NORMAL ECG - SINUS RHYTHM : Confirmed by: Audra Levy 04-Feb-2018 21:00:35
[2018-02-04] MEDS: LEVETIRACETAM ORAL SOLN 500 MG/5 ML UDCUP PO SCH (23:27)
[2018-02-04] MEDS: POLYVINYL ALCOHOL 1.4% OPH SOLN 15 ML OU SCH (23:27)
[2018-02-04] MEDS: INSULIN GLARGINE,HUM.REC.ANLOG 300 UNIT/3 ML INSULN.PEN SUBCUT SCH (23:29)
[2018-02-04] MEDS: ACETAMINOPHEN 325 MG TABLET PO SCH (23:29)
[2018-02-05] MEDS ORDERED: (PENDING PHARMACY ID) (Acetaminophen [Tylenol Extra Strength 500 Mg Tablet] 1 TAB) PO SCH
[2018-02-05] MEDS: LATANOPROST 0.005% OPH SOLN 2.5 ML OU SCH (02:43)
[2018-02-05 05:32] LABS: ABSOLUTE LYMPHOCYTES (AUTO) 1.9 10^3/uL (0.5-4.7); ABSOLUTE MONOCYTES (AUTO) 0.9 10^3/uL (0.1-1.4); ABSOLUTE NEUT (AUTO) 4.3 10^3/uL (1.7-8.2); BASOPHILS % (AUTO) 0.3 % (0-2); EOSINOPHILS % (AUTO) 0.6 % (0-6); HEMATOCRIT 39.3 % (36.0-47.0); HEMOGLOBIN 12.7 g/dL (12.0-15.5); LYMPHOCYTES % (AUTO) 26.1 % (13-45); MEAN CORPUSCULAR HEMOGLOBIN 28.8 pg (27.0-33.4); MEAN CORPUSCULAR HGB CONC 32.2 g/dL (32.0-36.0); MEAN CORPUSCULAR VOLUME 89 fl (80-97); MONOCYTES % (AUTO) 13.2 % (3-13); PLATELET COUNT 182 10^3/uL (150-450); RED BLOOD COUNT 4.39 10^6/uL (3.72-5.28); RED CELL DISTRIBUTION WIDTH 16.1 % (11.5-14.0); SEGMENTED NEUTROPHILS % (AUTO) 59.8 % (42-78); TOTAL CELLS COUNTED % (AUTO) 100 %; WHITE BLOOD COUNT 7.2 10^3/uL (4.0-10.5)
[2018-02-05 05:59] LABS: ALANINE AMINOTRANSFERASE 31 U/L (9-52); ALBUMIN 3.5 g/dL (3.5-5.0); ALKALINE PHOSPHATASE 83 U/L (38-126); ANION GAP 14 (5-19); ASPARTATE AMINO TRANSFERASE 27 U/L (14-36); BILIRUBIN,DIRECT 0.5 mg/dL (0.0-0.4); BILIRUBIN,TOTAL 0.7 mg/dL (0.2-1.3); BLOOD UREA NITROGEN 57 mg/dL (7-20); CALCIUM 10.1 mg/dL (8.4-10.2); CARBON DIOXIDE 24 mmol/L (22-30); CHLORIDE 128 mmol/L (98-107); GLUCOSE 84 mg/dL (75-110); POTASSIUM 3.7 mmol/L (3.6-5.0); SODIUM 165.5 mmol/L (137-145); TOTAL PROTEIN 7.1 g/dL (6.3-8.2)
[2018-02-05] MEDS ORDERED: LANSOPRAZOLE 15 MG TAB.RAP.DR PO SCH (06:00)
[2018-02-05] MEDS: ACETAMINOPHEN 325 MG TABLET PO SCH ×3 (07:39→17:01)
[2018-02-05] MEDS: LANSOPRAZOLE 30 MG TAB.RAP.DR PO SCH (07:39)
[2018-02-05] MEDS: SITAGLIPTIN PHOSPHATE 50 MG TABLET PO SCH (07:53)
[2018-02-05] MEDS ORDERED: FUROSEMIDE 40 MG TABLET PO SCH (08:00)
[2018-02-05] MEDS: CEFTRIAXONE SODIUM 1,000 MG in NORMAL SALINE 100 ML IV SCH (09:56)
[2018-02-05] MEDS: ENOXAPARIN SODIUM INJ 30 MG/0.3 ML DISP.SYRIN SUBCUT SCH (09:58)
[2018-02-05] MEDS: POLYVINYL ALCOHOL 1.4% OPH SOLN 15 ML OU SCH (09:58)
[2018-02-05] MEDS ORDERED: CEFTRIAXONE 1 GM/D5W RTU 1 GM/50 ML RTUPB IV SCH (10:00)
[2018-02-05] MEDS ORDERED: ENOXAPARIN SODIUM INJ 30 MG/0.3 ML DISP.SYRIN SUBCUT SCH (10:00)
[2018-02-05] MEDS ORDERED: (PENDING PHARMACY ID) (Memantine Hcl [Namenda Xr] 28 MG) PO SCH (10:00)
[2018-02-05] MEDS ORDERED: (PENDING PHARMACY ID) (Valsartan [Diovan] 320 MG) PO SCH (10:00)
[2018-02-05] MEDS: LEVETIRACETAM ORAL SOLN 500 MG/5 ML UDCUP PO SCH (10:04)
[2018-02-05] MEDS: ASPIRIN 81 MG TABLET, CHEWABLE PO SCH (10:04)
[2018-02-05] MEDS: AMLODIPINE BESYLATE 10 MG TABLET PO SCH (10:04)
[2018-02-05] MEDS: VALSARTAN 160 MG TABLET PO SCH (10:04)
[2018-02-05] MEDS: LUBIPROSTONE 24 MCG CAPSULE PO SCH ×2 (10:04→17:01)
[2018-02-05] MEDS: DOCUSATE SODIUM 100 MG CAPSULE PO SCH (10:04)
[2018-02-05] MEDS: METOPROLOL SUCCINATE 25 MG TAB.SR.24H PO SCH (10:04)
--- NOTE | 2018-02-05 14:58 | PDOC PROGRESS REPORT ---
Subjective Progress Note for:: 02/05/18 Subjective:: Patient continue to refuse food and medication. She remain on IV fluid support. No reported fever, observed chills, difficulty with breathing or chest pain. Reason For Visit: HYPERNATREMIC DEHYDRATION,UTI,TOXIC ENCEPHALOPATHY Physical Exam Vital Signs: Temp Pulse Resp BP Pulse Ox 97.9 F 92 18 115/77 100 02/05/18 11:00 02/05/18 11:00 02/05/18 07:00 02/05/18 11:00 02/05/18 07:00 Intake & Output 02/04/18 02/05/18 02/06/18 06:59 06:59 06:59 Intake Total 1200 Balance 1200 Weight 110 kg General appearance: PRESENT: no acute distress Head exam: PRESENT: atraumatic, normocephalic Mouth exam: PRESENT: dry mucosa Cardiovascular exam: PRESENT: RRR. ABSENT: diastolic murmur, rubs, systolic murmur Vascular exam: PRESENT: normal capillary refill, pallor GI/Abdominal exam: PRESENT: normal bowel sounds, soft. ABSENT: distended, guarding, mass, organolmegaly, rebound, tenderness Neurological exam: PRESENT: altered Psychiatric exam: PRESENT: other - refused medication and food Skin exam: PRESENT: dry, warm Results Laboratory Results: 02/05/18 04:00 02/05/18 04:00 02/05/18 02/05/18 04:00 04:00 WBC 7.2 RBC 4.39 Hgb 12.7 Hct 39.3 MCV 89 MCH 28.8 MCHC 32.2 RDW 16.1 H Plt Count 182 Seg Neutrophils % 59.8 Lymphocytes % 26.1 Monocytes % 13.2 H Eosinophils % 0.6 Basophils % 0.3 Absolute Neutrophils 4.3 Absolute Lymphocytes 1.9 Absolute Monocytes 0.9 Absolute Eosinophils 0.0 Absolute Basophils 0.0 Sodium 165.5 H Potassium 3.7 Chloride 128 H Carbon Dioxide 24 Anion Gap 14 BUN 57 H Creatinine 1.49 H Est GFR ( Amer) 40 L Est GFR (Non-Af Amer) 33 L Glucose 84 Calcium 10.1 Total Bilirubin 0.7 AST 27 ALT 31 Alkaline Phosphatase 83 Total Protein 7.1 Albumin 3.5 Impressions: Chest X-Ray 02/04/18 09:50 IMPRESSION: NO ACUTE RADIOGRAPHIC FINDING IN THE CHEST. Head CT 02/04/18 09:50 IMPRESSION: CHRONIC CHANGES OF ATROPHY AND MICROVASCULAR ISCHEMIA. NO ACUTE PROCESS. EVIDENCE OF ACUTE STROKE: NO. Assessment & Plan - Diagnosis (1) Acute hypernatremia Is this a current diagnosis for this admission?: Yes (2) Dehydration Is this a current diagnosis for this admission?: Yes (3) UTI (urinary tract infection) Qualifiers: Urinary tract infection type: acute cystitis Hematuria presence: without hematuria Qualified Code(s): N30.00 - Acute cystitis without hematuria Is this a current diagnosis for this admission?: Yes (4) HTN (hypertension) Qualifiers: Hypertension type: essential hypertension Qualified Code(s): I10 - Essential (primary) hypertension Is this a current diagnosis for this admission?: Yes (5) SACHIN (acute kidney injury) Is this a current diagnosis for this admission?: Yes (6) Diabetes mellitus type 2 in obese Is this a current diagnosis for this admission?: Yes - Time Time Spent with patient: 25-34 minutes Medications reviewed and adjusted accordingly: Yes Anticipated discharge: SNF Within: Other - Inpatient Certification Based on my medical assessment, after consideration of the patient's comorbidities, presenting symptoms, or acuity I expect that the services needed warrant INPATIENT care.: Yes I certify that my determination is in accordance with my understanding of Medicare's requirements for reasonable and necessary INPATIENT services [42 CFR 412.3e].: Yes Medical Necessity: Need Close Monitoring Due to Risk of Patient Decompensation, Need For IV Fluids, Need for IV Antibiotics, Risk of Complication if Not Cared For in Hospital Post Hospital Care: D/C or Transfer Summary - Plan Summary Plan Summary: See covering attending physician orders.
[2018-02-05] MEDS: DEXTROSE 5%-WATER 1000 ML 1,000 ML IV PRN (15:17)
[2018-02-05] MEDS ORDERED: LORAZEPAM INJ 2 MG/1 ML VIAL IM ONE (19:00)
--- NOTE | 2018-02-05 22:29 | OPERATIVE REPORT E ---
Operative Report NAME: DANIEL PHAM : 1930 AGE: 87Y DATE OF SURGERY: 02/05/2018 ROOM: 404 PREOPERATIVE DIAGNOSIS: POOR VEINS FOR IV ACCESS. POSTOPERATIVE DIAGNOSIS: POOR VEINS FOR IV ACCESS. OPERATION: Placement of left internal jugular vein Triple lumen catheter. SURGEON: ILIANA BELLAMY M.D. ANESTHESIA: Local with sedation. INDICATION: This is an 87-year-old female who needed IV fluids and antibiotics. Patient does not have any peripheral veins for IV access with her being obese as a contributing factor. DESCRIPTION OF PROCEDURE: After adequate anesthesia, patient was placed in slight Trendelenburg position and the left neck prepped and draped in the usual sterile fashion. Patient had Ativan about half an hour ago and appears to be non-aggressive at this time. With the use of the ultrasound, the left internal jugular vein was then identified. The skin was then injected with Xylocaine. The left internal jugular vein was subsequently punctured along the path noted on the ultrasound. The vein was cannulated and a guidewire passed through towards the area of the superior vena cava. The needle was removed and the insertion site dilated. Next, a triple lumen catheter was then inserted through the guidewire to a distance of about 16 cm. The 3 ports of the catheter aspirated blood easily and instilled saline easily. The catheter was then anchored to the skin with 3-0 silk and the insertion site placed with Biopatch and a sterile transparent dressing was then placed over the Biopatch and catheter. A chest x-ray will be obtained for placement. The patient tolerated the procedure well. DICTATING PHYSICIAN: ILIANA BELLAMY M.D. [id number] PHY#: [id number] ID: [id number] JOB#: [id number] ACCT: [id number] cc:ILIANA BELLAMY M.D. >
--- NOTE | 2018-02-05 23:03 | RADIOLOGY REPORT (SQ) ---
EXAM DESCRIPTION: CHEST SINGLE VIEW COMPLETED DATE/TIME: 02/05/2018 10:51 pm REASON FOR STUDY: verify placement of central line COMPARISON: None. EXAM PARAMETERS: NUMBER OF VIEWS: One view. TECHNIQUE: Single frontal radiographic view of the chest acquired. RADIATION DOSE: NA LIMITATIONS: None. FINDINGS: LUNGS AND PLEURA: No opacities, masses or pneumothorax. No pleural effusion. MEDIASTINUM AND HILAR STRUCTURES: No masses. Contour normal. HEART AND VASCULAR STRUCTURES: Heart normal in size. Normal vasculature. BONES: No acute findings. HARDWARE: Central line inserted on the left side. Tip at the junction of the brachiocephalic vein an d superior vena cava. OTHER: No other significant finding. IMPRESSION: CENTRAL LINE DESCRIBED. NO PNEUMOTHORAX. NO ACUTE RADIOGRAPHIC FINDING IN THE CHEST . TECHNICAL DOCUMENTATION: JOB ID: [id number] [employer]- All Rights Reserved Reading location - IP/workstation name: [email or web address]
[2018-02-06] MEDS: LATANOPROST 0.005% OPH SOLN 2.5 ML OU SCH ×2 (00:15→23:44)
[2018-02-06] MEDS: POLYVINYL ALCOHOL 1.4% OPH SOLN 15 ML OU SCH ×2 (00:16→09:39)
[2018-02-06] MEDS: INSULIN GLARGINE,HUM.REC.ANLOG 300 UNIT/3 ML INSULN.PEN SUBCUT SCH (00:19)
[2018-02-06] MEDS: LEVETIRACETAM ORAL SOLN 500 MG/5 ML UDCUP PO SCH ×3 (01:58→23:48)
[2018-02-06] MEDS: DONEPEZIL HCL 5 MG TABLET PO SCH (01:58)
[2018-02-06] MEDS: ACETAMINOPHEN 325 MG TABLET PO SCH ×4 (01:58→18:16)
[2018-02-06] MEDS: NORMAL SALINE 10 ML SDV (SCHEDULED) IV SCH ×3 (03:08→18:15)
[2018-02-06] MEDS: LANSOPRAZOLE 30 MG TAB.RAP.DR PO SCH (05:59)
[2018-02-06 06:36] LABS: ABSOLUTE EOSINOPHILS # (AUTO) 0.1 10^3/uL (0.0-0.6); ABSOLUTE LYMPHOCYTES (AUTO) 2.1 10^3/uL (0.5-4.7); ABSOLUTE MONOCYTES (AUTO) 0.7 10^3/uL (0.1-1.4); ABSOLUTE NEUT (AUTO) 4.3 10^3/uL (1.7-8.2); BASOPHILS % (AUTO) 0.3 % (0-2); EOSINOPHILS % (AUTO) 1.1 % (0-6); HEMATOCRIT 37.1 % (36.0-47.0); HEMOGLOBIN 11.7 g/dL (12.0-15.5); LYMPHOCYTES % (AUTO) 28.9 % (13-45); MEAN CORPUSCULAR HEMOGLOBIN 28.5 pg (27.0-33.4); MEAN CORPUSCULAR HGB CONC 31.6 g/dL (32.0-36.0); MEAN CORPUSCULAR VOLUME 90 fl (80-97); MONOCYTES % (AUTO) 10.3 % (3-13); PLATELET COUNT 154 10^3/uL (150-450); RED BLOOD COUNT 4.12 10^6/uL (3.72-5.28); RED CELL DISTRIBUTION WIDTH 16.2 % (11.5-14.0); SEGMENTED NEUTROPHILS % (AUTO) 59.4 % (42-78); TOTAL CELLS COUNTED % (AUTO) 100 %; WHITE BLOOD COUNT 7.2 10^3/uL (4.0-10.5)
[2018-02-06 06:40] LABS: ANION GAP 13 (5-19); BLOOD UREA NITROGEN 40 mg/dL (7-20); CALCIUM 10.1 mg/dL (8.4-10.2); CARBON DIOXIDE 24 mmol/L (22-30); CHLORIDE 129 mmol/L (98-107); GLUCOSE 145 mg/dL (75-110); POTASSIUM 3.2 mmol/L (3.6-5.0); SODIUM 165.8 mmol/L (137-145)
[2018-02-06] MEDS: SITAGLIPTIN PHOSPHATE 50 MG TABLET PO SCH (07:39)
[2018-02-06] MEDS: CEFTRIAXONE SODIUM 1,000 MG in NORMAL SALINE 100 ML IV SCH (09:34)
[2018-02-06] MEDS: ENOXAPARIN SODIUM INJ 30 MG/0.3 ML DISP.SYRIN SUBCUT SCH (09:35)
[2018-02-06] MEDS: ASPIRIN 81 MG TABLET, CHEWABLE PO SCH (09:39)
[2018-02-06] MEDS: METOPROLOL SUCCINATE 25 MG TAB.SR.24H PO SCH (09:39)
[2018-02-06] MEDS: VALSARTAN 160 MG TABLET PO SCH (09:39)
[2018-02-06] MEDS: LUBIPROSTONE 24 MCG CAPSULE PO SCH ×2 (09:39→18:16)
[2018-02-06] MEDS: DOCUSATE SODIUM 100 MG CAPSULE PO SCH (09:39)
[2018-02-06] MEDS: AMLODIPINE BESYLATE 10 MG TABLET PO SCH (09:39)
--- NOTE | 2018-02-06 11:54 | PDOC PROGRESS REPORT ---
Subjective Progress Note for:: 02/06/18 Subjective:: Nursing staff reported incident of vaginal bleeding. Patient continue to refuse medication and food so far today. She had central line placement since last clinical evaluation by me and remain on IV fluid support. No reported fever, observed chills, difficulty with breathing or chest pain. Reason For Visit: HYPERNATREMIC DEHYDRATION,UTI,TOXIC ENCEPHALOPATHY Physical Exam Vital Signs: Temp Pulse Resp BP Pulse Ox 97.6 F 80 16 142/88 H 97 02/05/18 23:00 02/06/18 09:33 02/06/18 09:33 02/05/18 23:00 02/05/18 23:00 Intake & Output 02/05/18 02/06/18 02/07/18 06:59 06:59 06:59 Intake Total 1200 1021 Balance 1200 1021 Weight 110 kg 96.5 kg Physical Exam: General appearance: PRESENT: no acute distress Head exam: PRESENT: atraumatic, normocephalic Mouth exam: PRESENT: dry mucosa Cardiovascular exam: PRESENT: RRR. ABSENT: diastolic murmur, rubs, systolic murmur Vascular exam: PRESENT: normal capillary refill, pallor GI/Abdominal exam: PRESENT: normal bowel sounds, soft. ABSENT: distended, guarding, mass, organolmegaly, rebound, tenderness : PRESENT: Vaginal bleeding Neurological exam: PRESENT: altered Psychiatric exam: PRESENT: other - refused medication and food Skin exam: PRESENT: dry, warm Results Laboratory Results: 02/06/18 05:50 02/06/18 05:50 02/06/18 02/06/18 05:50 05:50 WBC 7.2 RBC 4.12 Hgb 11.7 L Hct 37.1 MCV 90 MCH 28.5 MCHC 31.6 L RDW 16.2 H Plt Count 154 Seg Neutrophils % 59.4 Lymphocytes % 28.9 Monocytes % 10.3 Eosinophils % 1.1 Basophils % 0.3 Absolute Neutrophils 4.3 Absolute Lymphocytes 2.1 Absolute Monocytes 0.7 Absolute Eosinophils 0.1 Absolute Basophils 0.0 Sodium 165.8 H Potassium 3.2 L Chloride 129 H Carbon Dioxide 24 Anion Gap 13 BUN 40 H Creatinine 1.25 Est GFR ( Amer) 49 L Est GFR (Non-Af Amer) 40 L Glucose 145 H Calcium 10.1 Impressions: Head CT 02/04/18 09:50 IMPRESSION: CHRONIC CHANGES OF ATROPHY AND MICROVASCULAR ISCHEMIA. NO ACUTE PROCESS. EVIDENCE OF ACUTE STROKE: NO. Chest X-Ray 02/05/18 21:50 IMPRESSION: CENTRAL LINE DESCRIBED. NO PNEUMOTHORAX. NO ACUTE RADIOGRAPHIC FINDING IN THE CHEST. Assessment & Plan - Diagnosis (1) Acute hypernatremia Is this a current diagnosis for this admission?: Yes (2) Dehydration Is this a current diagnosis for this admission?: Yes (3) UTI (urinary tract infection) Qualifiers: Urinary tract infection type: acute cystitis Hematuria presence: without hematuria Qualified Code(s): N30.00 - Acute cystitis without hematuria Is this a current diagnosis for this admission?: Yes (4) HTN (hypertension) Qualifiers: Hypertension type: essential hypertension Qualified Code(s): I10 - Essential (primary) hypertension Is this a current diagnosis for this admission?: Yes (5) SACHIN (acute kidney injury) Is this a current diagnosis for this admission?: Yes (6) Diabetes mellitus type 2 in obese Is this a current diagnosis for this admission?: Yes (7) Vaginal bleeding, abnormal Is this a current diagnosis for this admission?: Yes Plan: See covering attending physician orders. - Time Time Spent with patient: 25-34 minutes Medications reviewed and adjusted accordingly: Yes Anticipated discharge: SNF Within: Other - Inpatient Certification Based on my medical assessment, after consideration of the patient's comorbidities, presenting symptoms, or acuity I expect that the services needed warrant INPATIENT care.: Yes I certify that my determination is in accordance with my understanding of Medicare's requirements for reasonable and necessary INPATIENT services [42 CFR 412.3e].: Yes Medical Necessity: Need Close Monitoring Due to Risk of Patient Decompensation, Need For IV Fluids, Need For Continuous Telemetry Monitoring, Need for IV Antibiotics, Risk of Complication if Not Cared For in Hospital Post Hospital Care: D/C or Transfer Summary - Plan Summary Plan Summary: Continue IV antibiotic coverage. Follow up on blood culture findings. Obtain transabdominal pelvic ultrasound. Obtain [employer] consultation for further evaluation of management of her vaginal bleeding. Hold Lovenox.
[2018-02-06 15:44] LABS: INTERNATIONAL RATION (INR) 1.05; PROTHROMBIN TIME 14.2 SEC (11.4-15.4)
[2018-02-06 15:45] LABS: PARTIAL THROMBOPLASTIN TIME 32.3 SEC (23.5-35.8)
--- NOTE | 2018-02-06 17:22 | PDOC CONSULTATION ---
Consultation Consult Date: 02/06/18 Attending physician:: TACHO MICHAEL Consult reason:: vaginal bleeding History of Present Illness Admission Date/PCP: 02/04/18 13:43 IBIS ALCANTAR MD Patient complains of: per [facility] staff History of Present Illness: DANIEL PHAM is a 87 year old female patient of Dr Alcantar and resident at local residential who was brought to the ED by medic due to facility staff reported change in her mental status and worsening generalized weakness. Daughter at bedside narrated that patient have been refusing food and medication for several days. They were unable to give any more details except her listed morbidities. Thee was recent episode of UTI that was treated at the facility. No reported nausea, vomiting, fever or chills. Patient occasionally will take her medication with apple sauce and on thicken liquid consistency. There was episode of vomiting yesterday. No reported hematuria or dysuria. No reported fall, trauma, or head injury. Her morbidities include HTN, CAD, Congestive Heart Failure, Coronary Artery Disease, Diabetes Mellitus Type 2, Bronchitis, Osteoarthritis, and renal insufficiency. Since she has been admitted staff noted vaginal bleeding and contacted admitting physician who consulted DIRECTOR OF SPECIAL EDUCATION for eval. She is not able to give a history and is moaning in her room. The patient is mostly non verbal but does attempt to verbalize occasionally. Past Medical History LMP: postmenopausal Gynecological Infection: No Cardiac Medical History: Reports: Congestive Heart Failure, Coronary Artery Disease, Hypertension Pulmonary Medical History: Reports: Bronchitis, Pneumonia - hx Endocrine Medical History: Reports: Diabetes Mellitus Type 2 Musculoskeltal Medical History: Reports: Arthritis Social History Information Source: [facility] Records Occupation: None Lives with: Group Home Smoking Status: Unknown if Ever Smoked Frequency of Alcohol Use: None Hx Recreational Drug Use: No Hx Prescription Drug Abuse: No - Advance Directive Resuscitation Status: Do Not Resuscitate - I had extensive discussion with daughters at bedside and presently family expressed patient's wish for do not resuscitate status. Family History Family History: Reviewed & Not Pertinent Parental Family History Reviewed: No Children Family History Reviewed: NA Sibling(s) Family History Reviewed.: NA Medication/Allergy Home Medications: Acetaminophen [Tylenol Extra Strength 500 mg Tablet] 1 tab PO Q6 02/04/18 Amlodipine Besylate [Norvasc 10 mg Tablet] 10 mg PO DAILY 02/04/18 Anamantle Hc(Lidocaine/Hydrocortisone) 3%/0.5% 1 applic TOP TIDP PRN 02/04/18 Aspirin [Aspirin 81 mg Chewable Tablet] 81 mg PO DAILY 02/04/18 Docusate Sodium [Colace 100 mg Capsule] 100 mg PO DAILY 02/04/18 Donepezil HCl [Aricept] 10 mg PO QHS 02/04/18 Furosemide [Lasix 40 mg Tablet] 40 mg PO QAM 02/04/18 Insulin Glargine,Hum.rec.anlog [Lantus Solostar] 20 unit SQ QHS 02/04/18 Insulin Lispro [Humalog Insulin 100 Unit/1 ml 3 ml Vial] 0 unit SUBCUT .SLD SCALE 02/04/18 Ipratropium/Albuterol Sulfate [Duoneb 3 ml Ampul] 3 ml NEB RTQ6HP PRN 02/04/18 Latanoprost [Xalatan 0.005% Oph Soln 2.5 ml] 1 drop OU QHS 02/04/18 Levetiracetam 500 mg PO Q12 02/04/18 Lubiprostone [Amitiza 24 Mcg Capsule] 24 mcg PO BID 02/04/18 Memantine HCl [Namenda Xr] 28 mg PO DAILY 02/04/18 Metoprolol Succinate [Toprol Xl 25 mg Tab.sr] 25 mg PO DAILY 02/04/18 Omeprazole 20 mg PO Q6AM 02/04/18 Oxycodone HCl/Acetaminophen [Percocet 5-325 mg Tablet] 1 tab PO Q12HP PRN Polyvinyl Alcohol [Liquitears 1.4% Ophth Soln 15 ml] 2 drop OU Q12 02/04/18 Sitagliptin Phosphate [Januvia 50 mg Tablet] 50 mg PO QAM 02/04/18 Valsartan [Diovan] 320 mg PO DAILY 02/04/18 Allergies/Adverse Reactions: No Known Allergies Allergy (Verified 02/04/18 09:35) Review of Systems Constitutional: ABSENT: chills, fever(s), headache(s), weight gain, weight loss Cardiovascular: ABSENT: chest pain, dyspnea on exertion, edema, orthropnea, palpitations Respiratory: ABSENT: cough, hemoptysis Genitourinary: PRESENT: hematuria, other - vaginal bleeding. ABSENT: dysuria Musculoskeletal: ABSENT: joint swelling Neurological: ABSENT: abnormal gait, abnormal speech, confusion, dizziness, focal weakness, syncope Psychiatric: ABSENT: anxiety, depression, homidical ideation, suicidal ideation Endocrine: ABSENT: cold intolerance, heat intolerance, polydipsia, polyuria Hematologic/Lymphatic: ABSENT: easy bleeding, easy bruising Physical Exam - Physical Exam Vital Signs: Temp Pulse Resp BP Pulse Ox 97.4 F 93 19 117/74 97 02/06/18 11:00 02/06/18 11:00 02/06/18 11:00 02/06/18 11:00 02/05/18 23:00 Intake & Output 02/05/18 02/06/18 02/07/18 06:59 06:59 06:59 Intake Total 1200 1021 Balance 1200 1021 Weight 110 kg 96.5 kg General appearance: PRESENT: mild distress, other - unable to effectively communicate Head exam: PRESENT: atraumatic Respiratory exam: PRESENT: clear to auscultation christen, symmetrical, unlabored Cardiovascular exam: PRESENT: bradycardia, RRR, +S1, +S2 GI/Abdominal exam: PRESENT: normal bowel sounds, soft. ABSENT: distended, guarding, mass, organolmegaly, rebound, tenderness Rectal exam: PRESENT: deferred Extremities exam: PRESENT: full ROM. ABSENT: calf tenderness, clubbing, pedal edema Neurological exam: PRESENT: altered. ABSENT: alert Psychiatric exam: PRESENT: other - altered MS Skin exam: PRESENT: dry Result Laboratory Results: 02/06/18 05:50 02/06/18 05:50 02/06/18 02/06/18 05:50 05:50 WBC 7.2 RBC 4.12 Hgb 11.7 L Hct 37.1 MCV 90 MCH 28.5 MCHC 31.6 L RDW 16.2 H Plt Count 154 Seg Neutrophils % 59.4 Lymphocytes % 28.9 Monocytes % 10.3 Eosinophils % 1.1 Basophils % 0.3 Absolute Neutrophils 4.3 Absolute Lymphocytes 2.1 Absolute Monocytes 0.7 Absolute Eosinophils 0.1 Absolute Basophils 0.0 Sodium 165.8 H Potassium 3.2 L Chloride 129 H Carbon Dioxide 24 Anion Gap 13 BUN 40 H Creatinine 1.25 Est GFR ( Amer) 49 L Est GFR (Non-Af Amer) 40 L Glucose 145 H Calcium 10.1 Impressions: Head CT 02/04/18 09:50 IMPRESSION: CHRONIC CHANGES OF ATROPHY AND MICROVASCULAR ISCHEMIA. NO ACUTE PROCESS. EVIDENCE OF ACUTE STROKE: NO. Chest X-Ray 02/05/18 21:50 IMPRESSION: CENTRAL LINE DESCRIBED. NO PNEUMOTHORAX. NO ACUTE RADIOGRAPHIC FINDING IN THE CHEST. Assessment & Plan - Diagnosis (1) Vaginal bleeding, abnormal Is this a current diagnosis for this admission?: Yes Plan: Patient unable to given history and was not present for initial exam. I was notified when they arrived but by the time I was able to return to speak with them they had left. Per the RN the patients family seemed unconcerned since reportedly her PMB had been evaluated at [facility]. [facility] done by RN. Some records available from Group Home. Also found in records US from 06/17/2016 - done for Postmenopausal Bleeding - ES noted to 14.3mm which is significantly thickened in the presence of PMB and it was recommended that patient follow up with DIRECTOR OF SPECIAL EDUCATION (she has not been seen in our office). Unable to tell if that was done until note found from 03/04/2017. Per 03/04/[address] Perez stated she had previously had EMBx which only showed ectovervical cells - therefore not helpful in evaluation. On his 2016 note he stated that he was going to attempt to repeat pelvic exam and attempt EMBx again. Ultrasound was requested from Primary team which I agree with. However, unable to asses how far the patients family desire to proceed. Unable to reach them via phone. VM was left. [phone]. In records (H&P) it was reported that she had a hysterectomy which seems unlikely unless it was done after note from Dr. garcia on 03/04/2017. Await US then hopefully at some point will be able to have a conversation with family. She was made a DNR on admission. Recommend US of pelvis to assess ES so that can have further discussion with family. [facility]. Not a good candidate for IV premarin. Unfortunately, due to patient unable to take medications there is no way to give her provera. Would be hesitant to proceed with EMBx and/or D&C and aggressive eval and treatment unless family desires to do so since patient is DNR with multiple medical comorbidities and in a residential with significantly altered mental status. - Time Time Spent with patient: 30minutes Time Spent: 50 to 70 Minutes Critical Time spent with patient: Less than 15 minutes Medications reviewed and adjusted accordingly: No Anticipated discharge: Other Within: Other - Inpatient Certification Based on my medical assessment, after consideration of the patient's comorbidities, presenting symptoms, or acuity I expect that the services needed warrant INPATIENT care.: Yes I certify that my determination is in accordance with my understanding of Medicare's requirements for reasonable and necessary INPATIENT services [42 CFR 412.3e].: Yes Medical Necessity: Need Close Monitoring Due to Risk of Patient Decompensation, Need For IV Fluids, Need for IV Antibiotics Post Hospital Care: D/C Day Spa Manager Documentation - Plan Summary Plan Summary: awaiting more information.
[2018-02-06] MEDS: INSULIN LISPRO 100 UNIT/ML 3 ML VIAL SUBCUT PRN (18:15)
[2018-02-06] MEDS: DEXTROSE 5%-WATER 1000 ML 1,000 ML IV PRN (23:41)
[2018-02-07] MEDS: INSULIN GLARGINE,HUM.REC.ANLOG 300 UNIT/3 ML INSULN.PEN SUBCUT SCH ×2 (00:02→21:38)
[2018-02-07] MEDS: DONEPEZIL HCL 5 MG TABLET PO SCH (00:02)
[2018-02-07] MEDS: ACETAMINOPHEN 325 MG TABLET PO SCH ×4 (00:02→16:09)
[2018-02-07] MEDS: POLYVINYL ALCOHOL 1.4% OPH SOLN 15 ML OU SCH ×3 (00:02→21:35)
[2018-02-07] MEDS: NORMAL SALINE 10 ML SDV (SCHEDULED) IV SCH ×3 (01:54→17:30)
--- NOTE | 2018-02-07 04:19 | RADIOLOGY REPORT (SQ) ---
EXAM DESCRIPTION: U/S NON OB PEL W/DOPPLER CLINICAL HISTORY: 87 years, Female, VAGINAL BLEEDING COMPARISON: None. Technique: Transabdominal. LIMITATIONS: Body habitus. Bowel gas artifact. FINDINGS: 7.7 cm uterus, 0.2 cm thick endometrial stripe, 3.6 cm cervical length, and ovarian fossae appear otherwise unremarkable. Ovaries are not directly visualized. No significant free fluid. IMPRESSION: Endometrial atrophy.
[2018-02-07] MEDS: LANSOPRAZOLE 30 MG TAB.RAP.DR PO SCH (05:31)
[2018-02-07] MEDS: DEXTROSE 5%-WATER 1000 ML 1,000 ML IV PRN ×2 (09:52→21:38)
[2018-02-07] MEDS: CEFTRIAXONE SODIUM 1,000 MG in NORMAL SALINE 100 ML IV SCH (09:53)
[2018-02-07] MEDS: SITAGLIPTIN PHOSPHATE 50 MG TABLET PO SCH (09:54)
[2018-02-07] MEDS: ENOXAPARIN SODIUM INJ 30 MG/0.3 ML DISP.SYRIN SUBCUT SCH (12:40)
[2018-02-07] MEDS: DOCUSATE SODIUM 100 MG CAPSULE PO SCH (12:40)
[2018-02-07] MEDS: AMLODIPINE BESYLATE 10 MG TABLET PO SCH (12:40)
[2018-02-07] MEDS: ASPIRIN 81 MG TABLET, CHEWABLE PO SCH (12:40)
[2018-02-07] MEDS: LUBIPROSTONE 24 MCG CAPSULE PO SCH ×2 (12:40→16:08)
[2018-02-07] MEDS: LEVETIRACETAM ORAL SOLN 500 MG/5 ML UDCUP PO SCH (12:40)
[2018-02-07] MEDS: METOPROLOL SUCCINATE 25 MG TAB.SR.24H PO SCH (12:40)
[2018-02-07] MEDS: VALSARTAN 160 MG TABLET PO SCH (12:40)
[2018-02-07] MEDS: NORMAL SALINE 10 ML SDV (AFTER EACH USE) IV PRN (16:13)
--- NOTE | 2018-02-07 20:52 | PDOC PROGRESS REPORT ---
Subjective Progress Note for:: 02/07/18 Subjective:: She was admitted over the weekend when she presented with hypernatremic encephalopathy, UTI and vaginal bleeding. She was seen by university counselor transvaginal ultrasound was done, the family does not want any aggressive intervention done for further evaluation of the vaginal bleeding. She is very confused she is not particularly responding to verbal commands, the blood culture is growing cocci in clusters, presently on Rocephin antibiotic Reason For Visit: HYPERNATREMIC DEHYDRATION,UTI,TOXIC ENCEPHALOPATHY Physical Exam Vital Signs: Temp Pulse Resp BP Pulse Ox 97.6 F 82 20 130/73 H 100 02/07/18 20:00 02/07/18 20:00 02/07/18 20:00 02/07/18 20:00 02/07/18 20:00 Intake & Output 02/06/18 02/07/18 02/08/18 06:59 06:59 06:59 Intake Total 1021 2652 1224 Balance 1021 2652 1224 Weight 96.5 kg 98.7 kg General appearance: PRESENT: obese Respiratory exam: PRESENT: clear to auscultation christen Cardiovascular exam: PRESENT: +S1, +S2 GI/Abdominal exam: PRESENT: soft Neurological exam: PRESENT: altered Results Laboratory Results: 02/06/18 05:50 02/06/18 05:50 Impressions: Head CT 02/04/18 09:50 IMPRESSION: CHRONIC CHANGES OF ATROPHY AND MICROVASCULAR ISCHEMIA. NO ACUTE PROCESS. EVIDENCE OF ACUTE STROKE: NO. Chest X-Ray 02/05/18 21:50 IMPRESSION: CENTRAL LINE DESCRIBED. NO PNEUMOTHORAX. NO ACUTE RADIOGRAPHIC FINDING IN THE CHEST. Pelvis Ultrasound 02/07/18 00:00 IMPRESSION: Endometrial atrophy. Assessment & Plan - Diagnosis (1) Hypernatremia Is this a current diagnosis for this admission?: Yes Plan: Continue 5% dextrose (2) Metabolic encephalopathy Is this a current diagnosis for this admission?: Yes (3) Urinary tract infection Qualifiers: Urinary tract infection type: site unspecified Hematuria presence: without hematuria Qualified Code(s): N39.0 - Urinary tract infection, site not specified Is this a current diagnosis for this admission?: Yes Plan: Continue IV antibiotic (4) Vaginal bleeding Is this a current diagnosis for this admission?: Yes (5) Diabetes mellitus Qualifiers: Diabetes mellitus type: type 2 Diabetes mellitus moth exterminator insulin use: without moth exterminator use Diabetes mellitus complication status: with neurologic complications Diabetes mellitus complication detail: with polyneuropathy Qualified Code(s): E11.42 - Type 2 diabetes mellitus with diabetic polyneuropathy Is this a current diagnosis for this admission?: Yes (6) Dementia Qualifiers: Dementia type: Alzheimer's disease Alzheimer's disease onset: late-onset Dementia behavioral disturbance: without behavioral disturbance Qualified Code (s): G30.1 - Alzheimer's disease with late onset; F02.80 - Dementia in other diseases classified elsewhere without behavioral disturbance; F02.80 - Dementia in other diseases classified elsewhere without behavioral disturbance; F02.80 - Dementia in other diseases classified elsewhere without behavioral disturbance Is this a current diagnosis for this admission?: Yes
[2018-02-07] MEDS: INSULIN LISPRO 100 UNIT/ML 3 ML VIAL SUBCUT PRN (21:34)
[2018-02-07] MEDS: LATANOPROST 0.005% OPH SOLN 2.5 ML OU SCH (21:35)
[2018-02-07 22:17] LABS: ALANINE AMINOTRANSFERASE 26 U/L (9-52); ALBUMIN 2.6 g/dL (3.5-5.0); ALKALINE PHOSPHATASE 69 U/L (38-126); ANION GAP 6 (5-19); ASPARTATE AMINO TRANSFERASE 16 U/L (14-36); BILIRUBIN,DIRECT 0.4 mg/dL (0.0-0.4); BILIRUBIN,TOTAL 0.4 mg/dL (0.2-1.3); BLOOD UREA NITROGEN 20 mg/dL (7-20); CALCIUM 9.2 mg/dL (8.4-10.2); CARBON DIOXIDE 26 mmol/L (22-30); CHLORIDE 114 mmol/L (98-107); GLUCOSE 208 mg/dL (75-110); SODIUM 146.4 mmol/L (137-145); TOTAL PROTEIN 5.8 g/dL (6.3-8.2)
[2018-02-07 22:37] LABS: POTASSIUM 2.8 mmol/L (3.6-5.0)
[2018-02-08] MEDS: POTASSIUM CHLORIDE 20 MEQ/50 ML RTU IV SCH ×2 (00:48→04:40)
[2018-02-08] MEDS: DONEPEZIL HCL 5 MG TABLET PO SCH ×2 (00:50→23:40)
[2018-02-08] MEDS: LEVETIRACETAM ORAL SOLN 500 MG/5 ML UDCUP PO SCH ×3 (00:50→23:40)
[2018-02-08] MEDS: ACETAMINOPHEN 325 MG TABLET PO SCH ×3 (02:44→16:09)
[2018-02-08] MEDS: NORMAL SALINE 10 ML SDV (SCHEDULED) IV SCH ×3 (04:40→16:11)
[2018-02-08] MEDS: LANSOPRAZOLE 30 MG TAB.RAP.DR PO SCH (05:31)
[2018-02-08] MEDS: CEFTRIAXONE SODIUM 1,000 MG in NORMAL SALINE 100 ML IV SCH (10:16)
[2018-02-08] MEDS: AMLODIPINE BESYLATE 10 MG TABLET PO SCH (10:17)
[2018-02-08] MEDS: SITAGLIPTIN PHOSPHATE 50 MG TABLET PO SCH (10:17)
[2018-02-08] MEDS: ASPIRIN 81 MG TABLET, CHEWABLE PO SCH (10:17)
[2018-02-08] MEDS: DOCUSATE SODIUM 100 MG CAPSULE PO SCH (10:18)
[2018-02-08] MEDS: METOPROLOL SUCCINATE 25 MG TAB.SR.24H PO SCH (10:18)
[2018-02-08] MEDS: LUBIPROSTONE 24 MCG CAPSULE PO SCH ×2 (10:18→16:11)
[2018-02-08] MEDS: VALSARTAN 160 MG TABLET PO SCH (10:18)
[2018-02-08] MEDS: POLYVINYL ALCOHOL 1.4% OPH SOLN 15 ML OU SCH ×2 (10:19→23:12)
[2018-02-08] MEDS: ENOXAPARIN SODIUM INJ 30 MG/0.3 ML DISP.SYRIN SUBCUT SCH (10:19)
[2018-02-08 10:43] LABS: ALANINE AMINOTRANSFERASE 27 U/L (9-52); ALBUMIN 2.5 g/dL (3.5-5.0); ALKALINE PHOSPHATASE 66 U/L (38-126); ANION GAP 9 (5-19); ASPARTATE AMINO TRANSFERASE 16 U/L (14-36); BILIRUBIN,DIRECT 0.5 mg/dL (0.0-0.4); BILIRUBIN,TOTAL 0.5 mg/dL (0.2-1.3); BLOOD UREA NITROGEN 15 mg/dL (7-20); CALCIUM 8.9 mg/dL (8.4-10.2); CARBON DIOXIDE 24 mmol/L (22-30); CHLORIDE 116 mmol/L (98-107); GLUCOSE 140 mg/dL (75-110); POTASSIUM 3.1 mmol/L (3.6-5.0); SODIUM 148.6 mmol/L (137-145); TOTAL PROTEIN 5.6 g/dL (6.3-8.2)
[2018-02-08] MEDS: DEXTROSE 5%-WATER 1000 ML 1,000 ML with POTASSIUM CHLORIDE 40 MEQ IV PRN ×2 (11:46)
--- NOTE | 2018-02-08 20:27 | PDOC PROGRESS REPORT ---
Subjective Progress Note for:: 02/08/18 Subjective:: Patient seen by the bedside, there is an improvement compared to yesterday Reason For Visit: HYPERNATREMIC DEHYDRATION,UTI,TOXIC ENCEPHALOPATHY Physical Exam Vital Signs: Temp Pulse Resp BP Pulse Ox 98.6 F 81 16 111/76 100 02/08/18 20:23 02/08/18 20:23 02/08/18 20:23 02/08/18 20:23 02/08/18 20:23 Intake & Output 02/07/18 02/08/18 02/09/18 06:59 06:59 06:59 Intake Total 2652 2410 805 Balance 2652 2410 805 Weight 98.7 kg General appearance: PRESENT: no acute distress Eye exam: PRESENT: PERRLA Respiratory exam: PRESENT: clear to auscultation christen Cardiovascular exam: PRESENT: +S1, +S2 Neurological exam: PRESENT: alert Results Laboratory Results: 02/06/18 05:50 02/08/18 10:05 02/07/18 02/08/18 21:30 10:05 Sodium 146.4 H 148.6 H Potassium 2.8 L* 3.1 L Chloride 114 H 116 H Carbon Dioxide 26 24 Anion Gap 6 9 BUN 20 15 Creatinine 0.89 0.81 Est GFR ( Amer) > 60 > 60 Est GFR (Non-Af Amer) > 60 > 60 Glucose 208 H 140 H Calcium 9.2 8.9 Total Bilirubin 0.4 0.5 AST 16 16 ALT 26 27 Alkaline Phosphatase 69 66 Total Protein 5.8 L 5.6 L Albumin 2.6 L 2.5 L Impressions: Head CT 02/04/18 09:50 IMPRESSION: CHRONIC CHANGES OF ATROPHY AND MICROVASCULAR ISCHEMIA. NO ACUTE PROCESS. EVIDENCE OF ACUTE STROKE: NO. Chest X-Ray 02/05/18 21:50 IMPRESSION: CENTRAL LINE DESCRIBED. NO PNEUMOTHORAX. NO ACUTE RADIOGRAPHIC FINDING IN THE CHEST. Pelvis Ultrasound 02/07/18 00:00 IMPRESSION: Endometrial atrophy. Assessment & Plan - Diagnosis (1) Hypernatremia Is this a current diagnosis for this admission?: Yes (2) Metabolic encephalopathy Is this a current diagnosis for this admission?: Yes (3) Urinary tract infection Qualifiers: Urinary tract infection type: site unspecified Hematuria presence: without hematuria Qualified Code(s): N39.0 - Urinary tract infection, site not specified Is this a current diagnosis for this admission?: Yes (4) Vaginal bleeding Is this a current diagnosis for this admission?: Yes (5) Diabetes mellitus Qualifiers: Diabetes mellitus type: type 2 Diabetes mellitus watermaster insulin use: without penitentiary use Diabetes mellitus complication status: with neurologic complications Diabetes mellitus complication detail: with polyneuropathy Qualified Code(s): E11.42 - Type 2 diabetes mellitus with diabetic polyneuropathy Is this a current diagnosis for this admission?: Yes (6) Dementia Qualifiers: Dementia type: Alzheimer's disease Alzheimer's disease onset: late-onset Dementia behavioral disturbance: without behavioral disturbance Qualified Code (s): G30.1 - Alzheimer's disease with late onset; F02.80 - Dementia in other diseases classified elsewhere without behavioral disturbance; F02.80 - Dementia in other diseases classified elsewhere without behavioral disturbance; F02.80 - Dementia in other diseases classified elsewhere without behavioral disturbance Is this a current diagnosis for this admission?: Yes
[2018-02-08] MEDS: INSULIN GLARGINE,HUM.REC.ANLOG 300 UNIT/3 ML INSULN.PEN SUBCUT SCH (23:09)
[2018-02-08] MEDS: INSULIN LISPRO 100 UNIT/ML 3 ML VIAL SUBCUT PRN (23:12)
[2018-02-08] MEDS: LATANOPROST 0.005% OPH SOLN 2.5 ML OU SCH (23:12)
[2018-02-09] MEDS: NORMAL SALINE 10 ML SDV (SCHEDULED) IV SCH ×3 (03:35→17:23)
[2018-02-09] MEDS: DEXTROSE 5%-WATER 1000 ML 1,000 ML with POTASSIUM CHLORIDE 40 MEQ IV PRN ×4 (04:00→20:19)
[2018-02-09] MEDS: LANSOPRAZOLE 30 MG TAB.RAP.DR PO SCH (05:22)
[2018-02-09] MEDS: ACETAMINOPHEN 325 MG TABLET PO SCH ×4 (05:22→17:26)
[2018-02-09] MEDS: LUBIPROSTONE 24 MCG CAPSULE PO SCH ×2 (10:29→17:26)
[2018-02-09] MEDS: DOCUSATE SODIUM 100 MG CAPSULE PO SCH (10:29)
[2018-02-09] MEDS: LEVETIRACETAM ORAL SOLN 500 MG/5 ML UDCUP PO SCH ×2 (10:29→21:12)
[2018-02-09] MEDS: SITAGLIPTIN PHOSPHATE 50 MG TABLET PO SCH (10:29)
[2018-02-09] MEDS: ASPIRIN 81 MG TABLET, CHEWABLE PO SCH (10:30)
[2018-02-09] MEDS: METOPROLOL SUCCINATE 25 MG TAB.SR.24H PO SCH (10:30)
[2018-02-09] MEDS: CEFTRIAXONE SODIUM 1,000 MG in NORMAL SALINE 100 ML IV SCH (10:30)
[2018-02-09] MEDS: AMLODIPINE BESYLATE 10 MG TABLET PO SCH (10:30)
[2018-02-09] MEDS: VALSARTAN 160 MG TABLET PO SCH (10:31)
[2018-02-09] MEDS: POLYVINYL ALCOHOL 1.4% OPH SOLN 15 ML OU SCH ×2 (10:31→21:13)
[2018-02-09] MEDS: ENOXAPARIN SODIUM INJ 30 MG/0.3 ML DISP.SYRIN SUBCUT SCH (10:32)
--- NOTE | 2018-02-09 18:11 | PDOC PROGRESS REPORT ---
Subjective Progress Note for:: 02/09/18 Subjective:: She was seen by the bedsideShe continues to slowly improve Reason For Visit: HYPERNATREMIC DEHYDRATION,UTI,TOXIC ENCEPHALOPATHY Physical Exam Vital Signs: Temp Pulse Resp BP Pulse Ox 98.2 F 70 12 123/73 98 02/09/18 16:00 02/09/18 16:00 02/09/18 16:00 02/09/18 16:00 02/09/18 16:00 Intake & Output 02/08/18 02/09/18 02/10/18 06:59 06:59 06:59 Intake Total 2412012 0 Balance 2409 2012 0 Weight 100.4 kg General appearance: PRESENT: no acute distress, well-developed, well-nourished Head exam: PRESENT: atraumatic, normocephalic Eye exam: PRESENT: conjunctiva pink, EOMI, PERRLA Ear exam: PRESENT: normal external ear exam Mouth exam: PRESENT: moist, tongue midline Neck exam: PRESENT: full ROM Respiratory exam: PRESENT: clear to auscultation christen Cardiovascular exam: PRESENT: RRR, +S1, +S2 Pulses: PRESENT: normal dorsalis pedis pul, +2 pedal pulses bilateral Vascular exam: PRESENT: normal capillary refill GI/Abdominal exam: PRESENT: normal bowel sounds, soft Rectal exam: PRESENT: deferred Neurological exam: PRESENT: alert Psychiatric exam: PRESENT: appropriate affect, normal mood Skin exam: PRESENT: dry, intact, warm. ABSENT: cyanosis, rash Results Laboratory Results: 02/06/18 05:50 02/08/18 10:05 Impressions: Head CT 02/04/18 09:50 IMPRESSION: CHRONIC CHANGES OF ATROPHY AND MICROVASCULAR ISCHEMIA. NO ACUTE PROCESS. EVIDENCE OF ACUTE STROKE: NO. Chest X-Ray 02/05/18 21:50 IMPRESSION: CENTRAL LINE DESCRIBED. NO PNEUMOTHORAX. NO ACUTE RADIOGRAPHIC FINDING IN THE CHEST. Pelvis Ultrasound 02/07/18 00:00 IMPRESSION: Endometrial atrophy. Assessment & Plan - Diagnosis (1) Hypernatremia Is this a current diagnosis for this admission?: Yes (2) Metabolic encephalopathy Is this a current diagnosis for this admission?: Yes (3) Urinary tract infection Qualifiers: Urinary tract infection type: site unspecified Hematuria presence: without hematuria Qualified Code(s): N39.0 - Urinary tract infection, site not specified Is this a current diagnosis for this admission?: Yes (4) Vaginal bleeding Is this a current diagnosis for this admission?: Yes (5) Diabetes mellitus Qualifiers: Diabetes mellitus type: type 2 Diabetes mellitus termite exterminator helper insulin use: without termite exterminator helper use Diabetes mellitus complication status: with neurologic complications Diabetes mellitus complication detail: with polyneuropathy Qualified Code(s): E11.42 - Type 2 diabetes mellitus with diabetic polyneuropathy Is this a current diagnosis for this admission?: Yes (6) Dementia Qualifiers: Dementia type: Alzheimer's disease Alzheimer's disease onset: late-onset Dementia behavioral disturbance: without behavioral disturbance Qualified Code (s): G30.1 - Alzheimer's disease with late onset; F02.80 - Dementia in other diseases classified elsewhere without behavioral disturbance; F02.80 - Dementia in other diseases classified elsewhere without behavioral disturbance; F02.80 - Dementia in other diseases classified elsewhere without behavioral disturbance Is this a current diagnosis for this admission?: Yes
[2018-02-09] MEDS: INSULIN GLARGINE,HUM.REC.ANLOG 300 UNIT/3 ML INSULN.PEN SUBCUT SCH (21:12)
[2018-02-09] MEDS: DONEPEZIL HCL 5 MG TABLET PO SCH (21:12)
[2018-02-09] MEDS: LATANOPROST 0.005% OPH SOLN 2.5 ML OU SCH (21:13)
[2018-02-10] MEDS: ACETAMINOPHEN 325 MG TABLET PO SCH ×5 (00:28→23:31)
[2018-02-10] MEDS: NORMAL SALINE 10 ML SDV (SCHEDULED) IV SCH ×3 (01:35→18:50)
[2018-02-10] MEDS: LANSOPRAZOLE 30 MG TAB.RAP.DR PO SCH (05:45)
[2018-02-10] MEDS: SITAGLIPTIN PHOSPHATE 50 MG TABLET PO SCH (07:46)
[2018-02-10] MEDS: ENOXAPARIN SODIUM INJ 30 MG/0.3 ML DISP.SYRIN SUBCUT SCH (11:45)
[2018-02-10] MEDS: DOCUSATE SODIUM 100 MG CAPSULE PO SCH (11:45)
[2018-02-10] MEDS: VALSARTAN 160 MG TABLET PO SCH (11:46)
[2018-02-10] MEDS: AMLODIPINE BESYLATE 10 MG TABLET PO SCH (11:48)
[2018-02-10] MEDS: ASPIRIN 81 MG TABLET, CHEWABLE PO SCH (11:48)
[2018-02-10] MEDS: CEFTRIAXONE SODIUM 1,000 MG in NORMAL SALINE 100 ML IV SCH (11:49)
[2018-02-10] MEDS: METOPROLOL SUCCINATE 25 MG TAB.SR.24H PO SCH (11:50)
[2018-02-10] MEDS: LEVETIRACETAM ORAL SOLN 500 MG/5 ML UDCUP PO SCH ×2 (11:50→22:52)
[2018-02-10] MEDS: LUBIPROSTONE 24 MCG CAPSULE PO SCH ×2 (11:50→18:48)
[2018-02-10] MEDS: POLYVINYL ALCOHOL 1.4% OPH SOLN 15 ML OU SCH ×2 (11:50→22:52)
[2018-02-10] MEDS: DEXTROSE 5%-WATER 1000 ML 1,000 ML with POTASSIUM CHLORIDE 40 MEQ IV PRN ×2 (15:07)
--- NOTE | 2018-02-10 21:09 | PDOC PROGRESS REPORT ---
Subjective Progress Note for:: 02/10/18 Subjective:: She was seen by the bedsideShe continues to slowly improve Reason For Visit: HYPERNATREMIC DEHYDRATION,UTI,TOXIC ENCEPHALOPATHY Physical Exam Vital Signs: Temp Pulse Resp BP Pulse Ox 97.3 F 72 12 124/72 100 02/10/18 19:53 02/10/18 19:53 02/10/18 19:53 02/10/18 19:53 02/10/18 19:53 Intake & Output 02/09/18 02/10/18 02/11/18 06:59 06:59 06:59 Intake Total 2012 1956 100 Balance 2012 1956 100 Weight 100.4 kg 101.4 kg General appearance: PRESENT: no acute distress Eye exam: PRESENT: PERRLA Respiratory exam: PRESENT: clear to auscultation christen Cardiovascular exam: PRESENT: +S1, +S2 GI/Abdominal exam: PRESENT: soft Neurological exam: PRESENT: alert Results Laboratory Results: 02/06/18 05:50 02/08/18 10:05 Impressions: Head CT 02/04/18 09:50 IMPRESSION: CHRONIC CHANGES OF ATROPHY AND MICROVASCULAR ISCHEMIA. NO ACUTE PROCESS. EVIDENCE OF ACUTE STROKE: NO. Chest X-Ray 02/05/18 21:50 IMPRESSION: CENTRAL LINE DESCRIBED. NO PNEUMOTHORAX. NO ACUTE RADIOGRAPHIC FINDING IN THE CHEST. Pelvis Ultrasound 02/07/18 00:00 IMPRESSION: Endometrial atrophy. Assessment & Plan - Diagnosis (1) Hypernatremia Is this a current diagnosis for this admission?: Yes (2) Metabolic encephalopathy Is this a current diagnosis for this admission?: Yes (3) Urinary tract infection Qualifiers: Urinary tract infection type: site unspecified Hematuria presence: without hematuria Qualified Code(s): N39.0 - Urinary tract infection, site not specified Is this a current diagnosis for this admission?: Yes (4) Vaginal bleeding Is this a current diagnosis for this admission?: Yes (5) Diabetes mellitus Qualifiers: Diabetes mellitus type: type 2 Diabetes mellitus termite control technician insulin use: without intermediate use Diabetes mellitus complication status: with neurologic complications Diabetes mellitus complication detail: with polyneuropathy Qualified Code(s): E11.42 - Type 2 diabetes mellitus with diabetic polyneuropathy Is this a current diagnosis for this admission?: Yes (6) Dementia Qualifiers: Dementia type: Alzheimer's disease Alzheimer's disease onset: late-onset Dementia behavioral disturbance: without behavioral disturbance Qualified Code (s): G30.1 - Alzheimer's disease with late onset; F02.80 - Dementia in other diseases classified elsewhere without behavioral disturbance; F02.80 - Dementia in other diseases classified elsewhere without behavioral disturbance; F02.80 - Dementia in other diseases classified elsewhere without behavioral disturbance Is this a current diagnosis for this admission?: Yes
[2018-02-10] MEDS: INSULIN GLARGINE,HUM.REC.ANLOG 300 UNIT/3 ML INSULN.PEN SUBCUT SCH (22:51)
[2018-02-10] MEDS: LATANOPROST 0.005% OPH SOLN 2.5 ML OU SCH (22:52)
[2018-02-10] MEDS: DONEPEZIL HCL 5 MG TABLET PO SCH (22:52)
[2018-02-11] MEDS: NORMAL SALINE 10 ML SDV (SCHEDULED) IV SCH ×3 (00:04→18:05)
[2018-02-11] MEDS: ACETAMINOPHEN 325 MG TABLET PO SCH ×4 (05:59→23:03)
[2018-02-11] MEDS: LANSOPRAZOLE 30 MG TAB.RAP.DR PO SCH (06:00)
[2018-02-11] MEDS: DEXTROSE 5%-WATER 1000 ML 1,000 ML with POTASSIUM CHLORIDE 40 MEQ IV PRN ×4 (06:51→23:09)
[2018-02-11] MEDS: ASPIRIN 81 MG TABLET, CHEWABLE PO SCH (12:14)
[2018-02-11] MEDS: METOPROLOL SUCCINATE 25 MG TAB.SR.24H PO SCH (12:14)
[2018-02-11] MEDS: DOCUSATE SODIUM 100 MG CAPSULE PO SCH (12:14)
[2018-02-11] MEDS: LUBIPROSTONE 24 MCG CAPSULE PO SCH ×2 (12:14→18:05)
[2018-02-11] MEDS: VALSARTAN 160 MG TABLET PO SCH (12:14)
[2018-02-11] MEDS: AMLODIPINE BESYLATE 10 MG TABLET PO SCH (12:14)
[2018-02-11] MEDS: LEVETIRACETAM ORAL SOLN 500 MG/5 ML UDCUP PO SCH ×2 (12:14→22:57)
[2018-02-11] MEDS: SITAGLIPTIN PHOSPHATE 50 MG TABLET PO SCH (12:14)
[2018-02-11] MEDS: ENOXAPARIN SODIUM INJ 30 MG/0.3 ML DISP.SYRIN SUBCUT SCH (12:14)
[2018-02-11] MEDS: CEFTRIAXONE SODIUM 1,000 MG in NORMAL SALINE 100 ML IV SCH (12:16)
[2018-02-11] MEDS: POLYVINYL ALCOHOL 1.4% OPH SOLN 15 ML OU SCH ×2 (12:18→22:55)
--- NOTE | 2018-02-11 21:38 | PDOC PROGRESS REPORT ---
Subjective Progress Note for:: 02/11/18 Subjective:: Patient was seen by the bedside, she is not eating more, family is suggesting the use of a feeding tube, will get speech evaluation on Wednesday Reason For Visit: HYPERNATREMIC DEHYDRATION,UTI,TOXIC ENCEPHALOPATHY Physical Exam Vital Signs: Temp Pulse Resp BP Pulse Ox 98.3 F 72 12 112/68 100 02/11/18 20:00 02/11/18 20:00 02/11/18 20:00 02/11/18 20:00 02/11/18 20:00 Intake & Output 02/10/18 02/11/18 02/12/18 06:59 06:59 06:59 Intake Total 1956 1150 970 Balance 1956 1150 970 Weight 101.4 kg General appearance: PRESENT: no acute distress Eye exam: PRESENT: PERRLA Respiratory exam: PRESENT: clear to auscultation christen Cardiovascular exam: PRESENT: +S1, +S2 GI/Abdominal exam: PRESENT: soft Neurological exam: PRESENT: alert Results Laboratory Results: 02/06/18 05:50 02/08/18 10:05 Impressions: Head CT 02/04/18 09:50 IMPRESSION: CHRONIC CHANGES OF ATROPHY AND MICROVASCULAR ISCHEMIA. NO ACUTE PROCESS. EVIDENCE OF ACUTE STROKE: NO. Chest X-Ray 02/05/18 21:50 IMPRESSION: CENTRAL LINE DESCRIBED. NO PNEUMOTHORAX. NO ACUTE RADIOGRAPHIC FINDING IN THE CHEST. Pelvis Ultrasound 02/07/18 00:00 IMPRESSION: Endometrial atrophy. Assessment & Plan - Diagnosis (1) Hypernatremia Is this a current diagnosis for this admission?: Yes (2) Metabolic encephalopathy Is this a current diagnosis for this admission?: Yes (3) Urinary tract infection Qualifiers: Urinary tract infection type: site unspecified Hematuria presence: without hematuria Qualified Code(s): N39.0 - Urinary tract infection, site not specified Is this a current diagnosis for this admission?: Yes (4) Vaginal bleeding Is this a current diagnosis for this admission?: Yes (5) Diabetes mellitus Qualifiers: Diabetes mellitus type: type 2 Diabetes mellitus residential insulin use: without termite control service representative use Diabetes mellitus complication status: with neurologic complications Diabetes mellitus complication detail: with polyneuropathy Qualified Code(s): E11.42 - Type 2 diabetes mellitus with diabetic polyneuropathy Is this a current diagnosis for this admission?: Yes (6) Dementia Qualifiers: Dementia type: Alzheimer's disease Alzheimer's disease onset: late-onset Dementia behavioral disturbance: without behavioral disturbance Qualified Code (s): G30.1 - Alzheimer's disease with late onset; F02.80 - Dementia in other diseases classified elsewhere without behavioral disturbance; F02.80 - Dementia in other diseases classified elsewhere without behavioral disturbance; F02.80 - Dementia in other diseases classified elsewhere without behavioral disturbance Is this a current diagnosis for this admission?: Yes
[2018-02-11] MEDS: LATANOPROST 0.005% OPH SOLN 2.5 ML OU SCH (22:55)
[2018-02-11] MEDS: INSULIN GLARGINE,HUM.REC.ANLOG 300 UNIT/3 ML INSULN.PEN SUBCUT SCH (22:58)
[2018-02-11] MEDS: DONEPEZIL HCL 5 MG TABLET PO SCH (22:58)
[2018-02-12] MEDS: NORMAL SALINE 10 ML SDV (SCHEDULED) IV SCH ×3 (02:27→17:37)
[2018-02-12] MEDS: ACETAMINOPHEN 325 MG TABLET PO SCH ×3 (05:53→17:37)
[2018-02-12] MEDS: LANSOPRAZOLE 30 MG TAB.RAP.DR PO SCH (05:53)
[2018-02-12] MEDS: SITAGLIPTIN PHOSPHATE 50 MG TABLET PO SCH ×2 (08:59→09:43)
[2018-02-12] MEDS: ENOXAPARIN SODIUM INJ 30 MG/0.3 ML DISP.SYRIN SUBCUT SCH (09:43)
[2018-02-12] MEDS: ASPIRIN 81 MG TABLET, CHEWABLE PO SCH (09:44)
[2018-02-12] MEDS: AMLODIPINE BESYLATE 10 MG TABLET PO SCH (09:44)
[2018-02-12] MEDS: METOPROLOL SUCCINATE 25 MG TAB.SR.24H PO SCH (09:44)
[2018-02-12] MEDS: VALSARTAN 160 MG TABLET PO SCH (09:45)
[2018-02-12] MEDS: LEVETIRACETAM ORAL SOLN 500 MG/5 ML UDCUP PO SCH ×2 (09:46→22:29)
[2018-02-12] MEDS: LUBIPROSTONE 24 MCG CAPSULE PO SCH ×2 (09:46→17:37)
[2018-02-12] MEDS: POLYVINYL ALCOHOL 1.4% OPH SOLN 15 ML OU SCH ×2 (09:46→22:29)
[2018-02-12] MEDS: DOCUSATE SODIUM 100 MG CAPSULE PO SCH (09:47)
[2018-02-12] MEDS: DEXTROSE 5%-WATER 1000 ML 1,000 ML with POTASSIUM CHLORIDE 40 MEQ IV PRN ×2 (14:01)
--- NOTE | 2018-02-12 19:37 | PDOC PROGRESS REPORT ---
Subjective Progress Note for:: 02/12/18 Subjective:: Patient was seen by the bedside, she is not eating more, family is suggesting the use of a feeding tube, will get speech evaluation on Wednesday Reason For Visit: HYPERNATREMIC DEHYDRATION,UTI,TOXIC ENCEPHALOPATHY Physical Exam Vital Signs: Temp Pulse Resp BP Pulse Ox 97.9 F 79 18 147/76 H 98 02/12/18 08:00 02/12/18 08:00 02/12/18 08:00 02/12/18 08:00 02/12/18 08:00 Intake & Output 02/11/18 02/12/18 02/13/18 06:59 06:59 06:59 Intake Total 1150 1920 870 Balance 1150 1920 870 General appearance: PRESENT: no acute distress Eye exam: PRESENT: PERRLA Respiratory exam: PRESENT: clear to auscultation christen Cardiovascular exam: PRESENT: +S1, +S2 GI/Abdominal exam: PRESENT: soft Neurological exam: PRESENT: alert Results Laboratory Results: 02/06/18 05:50 02/08/18 10:05 Impressions: Head CT 02/04/18 09:50 IMPRESSION: CHRONIC CHANGES OF ATROPHY AND MICROVASCULAR ISCHEMIA. NO ACUTE PROCESS. EVIDENCE OF ACUTE STROKE: NO. Chest X-Ray 02/05/18 21:50 IMPRESSION: CENTRAL LINE DESCRIBED. NO PNEUMOTHORAX. NO ACUTE RADIOGRAPHIC FINDING IN THE CHEST. Pelvis Ultrasound 02/07/18 00:00 IMPRESSION: Endometrial atrophy. Assessment & Plan - Diagnosis (1) Hypernatremia Is this a current diagnosis for this admission?: Yes (2) Metabolic encephalopathy Is this a current diagnosis for this admission?: Yes (3) Urinary tract infection Qualifiers: Urinary tract infection type: site unspecified Hematuria presence: without hematuria Qualified Code(s): N39.0 - Urinary tract infection, site not specified Is this a current diagnosis for this admission?: Yes (4) Vaginal bleeding Is this a current diagnosis for this admission?: Yes (5) Diabetes mellitus Qualifiers: Diabetes mellitus type: type 2 Diabetes mellitus usp insulin use: without manager terminal use Diabetes mellitus complication status: with neurologic complications Diabetes mellitus complication detail: with polyneuropathy Qualified Code(s): E11.42 - Type 2 diabetes mellitus with diabetic polyneuropathy Is this a current diagnosis for this admission?: Yes (6) Dementia Qualifiers: Dementia type: Alzheimer's disease Alzheimer's disease onset: late-onset Dementia behavioral disturbance: without behavioral disturbance Qualified Code (s): G30.1 - Alzheimer's disease with late onset; F02.80 - Dementia in other diseases classified elsewhere without behavioral disturbance; F02.80 - Dementia in other diseases classified elsewhere without behavioral disturbance; F02.80 - Dementia in other diseases classified elsewhere without behavioral disturbance Is this a current diagnosis for this admission?: Yes
[2018-02-12] MEDS: DONEPEZIL HCL 5 MG TABLET PO SCH (22:27)
[2018-02-12] MEDS: LATANOPROST 0.005% OPH SOLN 2.5 ML OU SCH (22:29)
[2018-02-12] MEDS: INSULIN GLARGINE,HUM.REC.ANLOG 300 UNIT/3 ML INSULN.PEN SUBCUT SCH (22:36)
[2018-02-13] MEDS: ACETAMINOPHEN 325 MG TABLET PO SCH ×5 (00:21→23:55)
[2018-02-13] MEDS: NORMAL SALINE 10 ML SDV (SCHEDULED) IV SCH ×3 (02:25→17:48)
[2018-02-13] MEDS: DEXTROSE 5%-WATER 1000 ML 1,000 ML with POTASSIUM CHLORIDE 40 MEQ IV PRN ×2 (04:46)
[2018-02-13] MEDS: LANSOPRAZOLE 30 MG TAB.RAP.DR PO SCH (05:51)
[2018-02-13] MEDS ORDERED: ALTEPLASE INJ 2 MG VIAL (CATH CLEARANCE) IV ONE (11:00)
[2018-02-13 11:50] LABS: ALANINE AMINOTRANSFERASE 24 U/L (9-52); ALBUMIN 2.6 g/dL (3.5-5.0); ALKALINE PHOSPHATASE 75 U/L (38-126); ANION GAP 8 (5-19); ASPARTATE AMINO TRANSFERASE 14 U/L (14-36); BILIRUBIN,DIRECT 0.1 mg/dL (0.0-0.4); BILIRUBIN,TOTAL 0.2 mg/dL (0.2-1.3); BLOOD UREA NITROGEN 3 mg/dL (7-20); CALCIUM 8.9 mg/dL (8.4-10.2); CARBON DIOXIDE 20 mmol/L (22-30); CHLORIDE 111 mmol/L (98-107); GLUCOSE 106 mg/dL (75-110); POTASSIUM 4.8 mmol/L (3.6-5.0); TOTAL PROTEIN 5.7 g/dL (6.3-8.2)
[2018-02-13 12:19] LABS: ABSOLUTE EOSINOPHILS # (AUTO) 0.2 10^3/uL (0.0-0.6); ABSOLUTE LYMPHOCYTES (AUTO) 2.1 10^3/uL (0.5-4.7); ABSOLUTE MONOCYTES (AUTO) 0.9 10^3/uL (0.1-1.4); ABSOLUTE NEUT (AUTO) 3.6 10^3/uL (1.7-8.2); BASOPHILS % (AUTO) 0.3 % (0-2); HEMATOCRIT 33.2 % (36.0-47.0); HEMOGLOBIN 11.1 g/dL (12.0-15.5); LYMPHOCYTES % (AUTO) 30.7 % (13-45); MEAN CORPUSCULAR HGB CONC 33.6 g/dL (32.0-36.0); MEAN CORPUSCULAR VOLUME 87 fl (80-97); MONOCYTES % (AUTO) 13.3 % (3-13); PLATELET COUNT 154 10^3/uL (150-450); RED BLOOD COUNT 3.83 10^6/uL (3.72-5.28); RED CELL DISTRIBUTION WIDTH 15.4 % (11.5-14.0); SEGMENTED NEUTROPHILS % (AUTO) 52.7 % (42-78); TOTAL CELLS COUNTED % (AUTO) 100 %; WHITE BLOOD COUNT 6.8 10^3/uL (4.0-10.5)
[2018-02-13] MEDS: SITAGLIPTIN PHOSPHATE 50 MG TABLET PO SCH (13:13)
[2018-02-13] MEDS: LUBIPROSTONE 24 MCG CAPSULE PO SCH ×2 (13:14→18:02)
[2018-02-13] MEDS: VALSARTAN 160 MG TABLET PO SCH (13:14)
[2018-02-13] MEDS: ASPIRIN 81 MG TABLET, CHEWABLE PO SCH (13:15)
[2018-02-13] MEDS: DOCUSATE SODIUM 100 MG CAPSULE PO SCH (13:15)
[2018-02-13] MEDS: AMLODIPINE BESYLATE 10 MG TABLET PO SCH (13:15)
[2018-02-13] MEDS: LEVETIRACETAM ORAL SOLN 500 MG/5 ML UDCUP PO SCH ×2 (13:16→22:35)
[2018-02-13] MEDS: METOPROLOL SUCCINATE 25 MG TAB.SR.24H PO SCH (13:16)
[2018-02-13] MEDS: ENOXAPARIN SODIUM INJ 30 MG/0.3 ML DISP.SYRIN SUBCUT SCH (13:17)
[2018-02-13] MEDS: POLYVINYL ALCOHOL 1.4% OPH SOLN 15 ML OU SCH ×2 (13:17→22:35)
--- NOTE | 2018-02-13 15:57 | PDOC PROGRESS REPORT ---
Subjective Progress Note for:: 02/13/18 Subjective:: Patient is not eating, she has no interest in PEG tube, she was seen by speech it was felt that there is no dysphagia that the reduced intake is most likely from the dementia Reason For Visit: HYPERNATREMIC DEHYDRATION,UTI,TOXIC ENCEPHALOPATHY Physical Exam Vital Signs: Temp Pulse Resp BP Pulse Ox 98.3 F 68 16 127/65 H 100 02/13/18 00:00 02/13/18 00:00 02/13/18 00:00 02/13/18 00:00 02/13/18 00:00 Intake & Output 02/12/18 02/13/18 02/14/18 06:59 06:59 06:59 Intake Total 1919 1859 Balance 1919 1859 General appearance: PRESENT: no acute distress Eye exam: PRESENT: PERRLA Respiratory exam: PRESENT: clear to auscultation christen Cardiovascular exam: PRESENT: +S1, +S2 GI/Abdominal exam: PRESENT: soft Results Laboratory Results: 02/13/18 12:00 02/13/18 11:15 02/13/18 02/13/18 02/13/18 11:15 11:15 12:00 WBC Cancelled 6.8 RBC Cancelled 3.83 Hgb Cancelled 11.1 L Hct Cancelled 33.2 L MCV Cancelled 87 MCH Cancelled 29.0 MCHC Cancelled 33.6 RDW Cancelled 15.4 H Plt Count Cancelled 154 Seg Neutrophils % Cancelled 52.7 Lymphocytes % Cancelled 30.7 Monocytes % Cancelled 13.3 H Eosinophils % Cancelled 3.0 Basophils % Cancelled 0.3 Absolute Neutrophils Cancelled 3.6 Absolute Lymphocytes Cancelled 2.1 Absolute Monocytes Cancelled 0.9 Absolute Eosinophils Cancelled 0.2 Absolute Basophils Cancelled 0.0 Sodium 139.0 Potassium 4.8 Chloride 111 H Carbon Dioxide 20 L Anion Gap 8 BUN 3 L Creatinine 0.66 Est GFR ( Amer) > 60 Est GFR (Non-Af Amer) > 60 Glucose 106 Calcium 8.9 Total Bilirubin 0.2 AST 14 ALT 24 Alkaline Phosphatase 75 Total Protein 5.7 L Albumin 2.6 L Impressions: Head CT 02/04/18 09:50 IMPRESSION: CHRONIC CHANGES OF ATROPHY AND MICROVASCULAR ISCHEMIA. NO ACUTE PROCESS. EVIDENCE OF ACUTE STROKE: NO. Chest X-Ray 04/07/18 21:50 IMPRESSION: CENTRAL LINE DESCRIBED. NO PNEUMOTHORAX. NO ACUTE RADIOGRAPHIC FINDING IN THE CHEST. Pelvis Ultrasound 02/07/18 00:00 IMPRESSION: Endometrial atrophy. 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 Diabetes mellitus complication status: with neurologic complications Diabetes mellitus complication detail: with polyneuropathy Qualified Code(s): E11.42 - Type 2 diabetes mellitus with diabetic polyneuropathy Is this a current diagnosis for this admission?: Yes (6) Dementia Qualifiers: Dementia type: Alzheimer's disease Alzheimer's disease onset: late-onset Dementia behavioral disturbance: without behavioral disturbance Qualified Code (s): G30.1 - Alzheimer's disease with late onset; F02.80 - Dementia in other diseases classified elsewhere without behavioral disturbance; F02.80 - Dementia in other diseases classified elsewhere without behavioral disturbance; F02.80 - Dementia in other diseases classified elsewhere without behavioral disturbance Is this a current diagnosis for this admission?: Yes
[2018-02-13] MEDS: LATANOPROST 0.005% OPH SOLN 2.5 ML OU SCH (22:37)
[2018-02-13] MEDS: DONEPEZIL HCL 5 MG TABLET PO SCH (22:38)
[2018-02-13] MEDS: INSULIN GLARGINE,HUM.REC.ANLOG 300 UNIT/3 ML INSULN.PEN SUBCUT SCH (22:38)
[2018-02-14] MEDS: NORMAL SALINE 10 ML SDV (SCHEDULED) IV SCH ×3 (02:10→18:29)
[2018-02-14] MEDS: LANSOPRAZOLE 30 MG TAB.RAP.DR PO SCH (05:42)
[2018-02-14] MEDS: ACETAMINOPHEN 325 MG TABLET PO SCH ×3 (05:42→17:46)
[2018-02-14] MEDS: SITAGLIPTIN PHOSPHATE 50 MG TABLET PO SCH (08:36)
[2018-02-14] MEDS: ENOXAPARIN SODIUM INJ 30 MG/0.3 ML DISP.SYRIN SUBCUT SCH (09:23)
[2018-02-14] MEDS: VALSARTAN 160 MG TABLET PO SCH (11:04)
[2018-02-14] MEDS: LEVETIRACETAM ORAL SOLN 500 MG/5 ML UDCUP PO SCH ×2 (11:04→21:47)
[2018-02-14] MEDS: ASPIRIN 81 MG TABLET, CHEWABLE PO SCH (11:06)
[2018-02-14] MEDS: METOPROLOL SUCCINATE 25 MG TAB.SR.24H PO SCH (11:06)
[2018-02-14] MEDS: DOCUSATE SODIUM 100 MG CAPSULE PO SCH (11:06)
[2018-02-14] MEDS: AMLODIPINE BESYLATE 10 MG TABLET PO SCH (11:06)
[2018-02-14] MEDS: LUBIPROSTONE 24 MCG CAPSULE PO SCH ×2 (11:07→17:46)
[2018-02-14] MEDS: POLYVINYL ALCOHOL 1.4% OPH SOLN 15 ML OU SCH ×2 (11:07→21:47)
[2018-02-14] MEDS: LATANOPROST 0.005% OPH SOLN 2.5 ML OU SCH (21:47)
[2018-02-14] MEDS: DONEPEZIL HCL 5 MG TABLET PO SCH (21:47)
[2018-02-14] MEDS: INSULIN GLARGINE,HUM.REC.ANLOG 300 UNIT/3 ML INSULN.PEN SUBCUT SCH (22:25)
[2018-02-15] MEDS: ACETAMINOPHEN 325 MG TABLET PO SCH ×4 (00:38→17:35)
[2018-02-15] MEDS: NORMAL SALINE 10 ML SDV (SCHEDULED) IV SCH ×3 (03:15→17:36)
[2018-02-15] MEDS: LANSOPRAZOLE 30 MG TAB.RAP.DR PO SCH (05:17)
[2018-02-15] MEDS: SITAGLIPTIN PHOSPHATE 50 MG TABLET PO SCH (07:20)
[2018-02-15] MEDS: LUBIPROSTONE 24 MCG CAPSULE PO SCH ×2 (11:06→17:35)
[2018-02-15] MEDS: LEVETIRACETAM ORAL SOLN 500 MG/5 ML UDCUP PO SCH ×2 (11:06→21:37)
[2018-02-15] MEDS: ENOXAPARIN SODIUM INJ 30 MG/0.3 ML DISP.SYRIN SUBCUT SCH (11:06)
[2018-02-15] MEDS: AMLODIPINE BESYLATE 10 MG TABLET PO SCH (11:06)
[2018-02-15] MEDS: ASPIRIN 81 MG TABLET, CHEWABLE PO SCH (11:06)
[2018-02-15] MEDS: DOCUSATE SODIUM 100 MG CAPSULE PO SCH (11:06)
[2018-02-15] MEDS: METOPROLOL SUCCINATE 25 MG TAB.SR.24H PO SCH (11:07)
[2018-02-15] MEDS: VALSARTAN 160 MG TABLET PO SCH (11:07)
[2018-02-15] MEDS: POLYVINYL ALCOHOL 1.4% OPH SOLN 15 ML OU SCH ×2 (11:08→21:36)
--- NOTE | 2018-02-15 21:05 | PDOC PROGRESS REPORT ---
Subjective Progress Note for:: 02/15/18 Subjective:: Patient was seen by the bedside, she endorses the desire to , she does not want a PEG tube, family wants PEG tube, consultation will be require from hospice for evaluation for palliative care Reason For Visit: HYPERNATREMIC DEHYDRATION,UTI,TOXIC ENCEPHALOPATHY Physical Exam Vital Signs: Temp Pulse Resp BP Pulse Ox 98.2 F 79 16 104/59 L 97 02/15/18 15:58 02/15/18 15:58 02/15/18 15:58 02/15/18 15:58 02/15/18 15:58 Intake & Output 02/14/18 02/15/18 02/16/18 06:59 06:59 06:59 Intake Total 1049 720 100 Balance 1049 720 100 General appearance: PRESENT: no acute distress Eye exam: PRESENT: PERRLA Respiratory exam: PRESENT: clear to auscultation christen Cardiovascular exam: PRESENT: +S1, +S2 GI/Abdominal exam: PRESENT: soft Neurological exam: PRESENT: alert Results Laboratory Results: 02/13/18 12:00 02/13/18 11:15 Impressions: Head CT 02/04/18 09:50 IMPRESSION: CHRONIC CHANGES OF ATROPHY AND MICROVASCULAR ISCHEMIA. NO ACUTE PROCESS. EVIDENCE OF ACUTE STROKE: NO. Chest X-Ray 02/05/18 21:50 IMPRESSION: CENTRAL LINE DESCRIBED. NO PNEUMOTHORAX. NO ACUTE RADIOGRAPHIC FINDING IN THE CHEST. Pelvis Ultrasound 02/07/18 00:00 IMPRESSION: Endometrial atrophy. Assessment & Plan - Diagnosis (1) Hypernatremia Is this a current diagnosis for this admission?: Yes (2) Metabolic encephalopathy Is this a current diagnosis for this admission?: Yes (3) Urinary tract infection Qualifiers: Urinary tract infection type: site unspecified Hematuria presence: without hematuria Qualified Code(s): N39.0 - Urinary tract infection, site not specified Is this a current diagnosis for this admission?: Yes (4) Vaginal bleeding Is this a current diagnosis for this admission?: Yes (5) Diabetes mellitus Qualifiers: Diabetes mellitus type: type 2 Diabetes mellitus joint terminal attack controller insulin use: without joint terminal attack controller use Diabetes mellitus complication status: with neurologic complications Diabetes mellitus complication detail: with polyneuropathy Qualified Code(s): E11.42 - Type 2 diabetes mellitus with diabetic polyneuropathy Is this a current diagnosis for this admission?: Yes (6) Dementia Qualifiers: Dementia type: Alzheimer's disease Alzheimer's disease onset: late-onset Dementia behavioral disturbance: without behavioral disturbance Qualified Code (s): G30.1 - Alzheimer's disease with late onset; F02.80 - Dementia in other diseases classified elsewhere without behavioral disturbance; F02.80 - Dementia in other diseases classified elsewhere without behavioral disturbance; F02.80 - Dementia in other diseases classified elsewhere without behavioral disturbance Is this a current diagnosis for this admission?: Yes
[2018-02-15] MEDS: DONEPEZIL HCL 5 MG TABLET PO SCH (21:53)
[2018-02-15] MEDS: LATANOPROST 0.005% OPH SOLN 2.5 ML OU SCH (21:53)
[2018-02-15] MEDS: INSULIN GLARGINE,HUM.REC.ANLOG 300 UNIT/3 ML INSULN.PEN SUBCUT SCH (22:50)
[2018-02-16] MEDS: ACETAMINOPHEN 325 MG TABLET PO SCH ×4 (01:36→20:01)
[2018-02-16] MEDS: NORMAL SALINE 10 ML SDV (SCHEDULED) IV SCH ×4 (01:38→22:55)
[2018-02-16] MEDS: LANSOPRAZOLE 30 MG TAB.RAP.DR PO SCH (05:56)
[2018-02-16] MEDS: SITAGLIPTIN PHOSPHATE 50 MG TABLET PO SCH (09:21)
[2018-02-16] MEDS: DOCUSATE SODIUM 100 MG CAPSULE PO SCH (09:39)
[2018-02-16] MEDS: ENOXAPARIN SODIUM INJ 30 MG/0.3 ML DISP.SYRIN SUBCUT SCH (09:39)
[2018-02-16] MEDS: LUBIPROSTONE 24 MCG CAPSULE PO SCH ×2 (09:39→20:01)
[2018-02-16] MEDS: ASPIRIN 81 MG TABLET, CHEWABLE PO SCH (09:45)
[2018-02-16] MEDS: METOPROLOL SUCCINATE 25 MG TAB.SR.24H PO SCH (09:45)
[2018-02-16] MEDS: AMLODIPINE BESYLATE 10 MG TABLET PO SCH (09:45)
[2018-02-16] MEDS: LEVETIRACETAM ORAL SOLN 500 MG/5 ML UDCUP PO SCH ×2 (09:45→22:48)
[2018-02-16] MEDS: POLYVINYL ALCOHOL 1.4% OPH SOLN 15 ML OU SCH ×2 (09:46→22:48)
[2018-02-16] MEDS: VALSARTAN 160 MG TABLET PO SCH (09:46)
--- NOTE | 2018-02-16 18:32 | PDOC TRANSFER SUMMARY ---
General - Admit/Disc Date/PCP Admission Date/Primary Care Provider: 02/04/18 13:43 IBIS ALCANTAR MD Discharge Date: 02/16/18 - Discharge Diagnosis (1) Hypernatremia Is this a current diagnosis for this admission?: Yes (2) Metabolic encephalopathy Is this a current diagnosis for this admission?: Yes (3) Urinary tract infection Is this a current diagnosis for this admission?: Yes (4) Vaginal bleeding Is this a current diagnosis for this admission?: Yes (5) Diabetes mellitus Is this a current diagnosis for this admission?: Yes (6) Dementia Is this a current diagnosis for this admission?: Yes - Additional Information Resuscitation Status: Do Not Resuscitate - I had extensive discussion with daughters at bedside and presently family expressed patient's wish for do not resuscitate status. Home Medications: Acetaminophen [Tylenol Extra Strength 500 mg Tablet] 1 tab PO Q6 02/04/18 Amlodipine Besylate [Norvasc 10 mg Tablet] 10 mg PO DAILY 02/04/18 Anamantle Hc(Lidocaine/Hydrocortisone) 3%/0.5% 1 applic TOP TIDP PRN 02/04/18 Aspirin [Aspirin 81 mg Chewable Tablet] 81 mg PO DAILY 02/04/18 Docusate Sodium [Colace 100 mg Capsule] 100 mg PO DAILY 02/04/18 Donepezil HCl [Aricept] 10 mg PO QHS 02/04/18 Furosemide [Lasix 40 mg Tablet] 40 mg PO QAM 02/04/18 Insulin Glargine,Hum.rec.anlog [Lantus Solostar] 20 unit SQ QHS 02/04/18 Insulin Lispro [Humalog Insulin (Lispro) 100 unit/mL] 0 unit SUBCUT .SLD SCALE 02/04/18 Ipratropium/Albuterol Sulfate [Duoneb 3 ml Ampul] 3 ml NEB [id number] PRN 02/04/18 Latanoprost [Xalatan 0.005% Oph Soln 2.5 ml] 1 drop OU QHS 02/04/18 Levetiracetam 500 mg PO Q12 02/04/18 Lubiprostone [Amitiza 24 Mcg Capsule] 24 mcg PO BID 02/04/18 Memantine HCl [Namenda Xr] 28 mg PO DAILY 02/04/18 Metoprolol Succinate [Toprol Xl 25 mg Tab.sr] 25 mg PO DAILY 02/04/18 Omeprazole 20 mg PO Q6AM 02/04/18 Oxycodone HCl/Acetaminophen [Percocet 5-325 mg Tablet] 1 tab PO Q12HP PRN Polyvinyl Alcohol [Liquitears 1.4% Ophth Soln 15 ml] 2 drop OU Q12 02/04/18 Sitagliptin Phosphate [Januvia 50 mg Tablet] 50 mg PO QAM 02/04/18 Valsartan [Diovan] 320 mg PO DAILY 02/04/18 History of Present Illness Admission Date/PCP: 02/04/18 13:43 IBIS ALCANTAR MD History of Present Illness: DANIEL PHAM is a 87 year old female,She was admitted for the management of severe hypernatremic encephalopathy Hospital Course Hospital Course: She has advanced dementia, resident of the longterm at [facility]. She was admitted for the management of severe hypernatremic encephalopathy, hospital course was complicated with urinary tract infection vaginal bleeding, she was seen by the daycare director for evaluation of vaginal bleeding family felt there was no need to aggressively evaluate the etiology of the vaginal bleeding. Patient sensorium was depressed throughout hospital stay there was poor intake, she does not want a feeding tube, she endorses desire to . After consultation with family it was concluded that it is best to discharge back to longterm with hospice Physical Exam Vital Signs: Temp Pulse Resp BP Pulse Ox 98.1 F 95 20 113/72 100 02/16/18 15:30 02/16/18 15:30 02/16/18 15:30 02/16/18 15:30 02/16/18 15:30 Intake & Output 02/15/18 02/16/18 02/17/18 06:59 06:59 06:59 Intake Total 720 220 100 Balance 720 220 100 General appearance: PRESENT: no acute distress Eye exam: PRESENT: PERRLA Respiratory exam: PRESENT: clear to auscultation christen Cardiovascular exam: PRESENT: +S1, +S2 GI/Abdominal exam: PRESENT: soft Neurological exam: PRESENT: alert Results Laboratory Results: 02/13/18 12:00 02/13/18 11:15 Impressions: Head CT 02/04/18 09:50 IMPRESSION: CHRONIC CHANGES OF ATROPHY AND MICROVASCULAR ISCHEMIA. NO ACUTE PROCESS. EVIDENCE OF ACUTE STROKE: NO. Chest X-Ray 02/05/18 21:50 IMPRESSION: CENTRAL LINE DESCRIBED. NO PNEUMOTHORAX. NO ACUTE RADIOGRAPHIC FINDING IN THE CHEST. Pelvis Ultrasound 02/07/18 00:00 IMPRESSION: Endometrial atrophy. Qualifiers - * PATEINT BEING DISCHARGED WITH ANY OF THE FOLLOWING DIAGNOSIS?: No
[2018-02-16] MEDS: DONEPEZIL HCL 5 MG TABLET PO SCH (22:47)
[2018-02-16] MEDS: LATANOPROST 0.005% OPH SOLN 2.5 ML OU SCH (22:48)
[2018-02-16] MEDS: NORMAL SALINE 10 ML SDV (AFTER EACH USE) IV PRN (22:49)
[2018-02-16] MEDS: INSULIN GLARGINE,HUM.REC.ANLOG 300 UNIT/3 ML INSULN.PEN SUBCUT SCH (22:54)
[2018-02-17] MEDS: ACETAMINOPHEN 325 MG TABLET PO SCH ×2 (00:44→05:58)
[2018-02-17] MEDS: NORMAL SALINE 10 ML SDV (SCHEDULED) IV SCH (05:58)
[2018-02-17] MEDS: LANSOPRAZOLE 30 MG TAB.RAP.DR PO SCH (05:58)
[2018-02-17] MEDS: ENOXAPARIN SODIUM INJ 30 MG/0.3 ML DISP.SYRIN SUBCUT SCH (09:51)
[2018-02-17] MEDS: METOPROLOL SUCCINATE 25 MG TAB.SR.24H PO SCH (09:56)
[2018-02-17] MEDS: AMLODIPINE BESYLATE 10 MG TABLET PO SCH (10:01)
[2018-02-17] MEDS: SITAGLIPTIN PHOSPHATE 50 MG TABLET PO SCH (10:01)
[2018-02-17] MEDS: LUBIPROSTONE 24 MCG CAPSULE PO SCH (10:02)
[2018-02-17] MEDS: ASPIRIN 81 MG TABLET, CHEWABLE PO SCH (10:02)
[2018-02-17] MEDS: DOCUSATE SODIUM 100 MG CAPSULE PO SCH (10:02)
[2018-02-17] MEDS: POLYVINYL ALCOHOL 1.4% OPH SOLN 15 ML OU SCH (10:02)
[2018-02-17] MEDS: VALSARTAN 160 MG TABLET PO SCH (10:02)
[2018-02-17] MEDS: LEVETIRACETAM ORAL SOLN 500 MG/5 ML UDCUP PO SCH (10:02)
[2018-02-17 11:55] VITALS: BP 111/61
== END 2018-02-17 12:00 | disposition hospice, inpatient (51) | DRG 640 ==
LOC: ER 09:24 → EH 13:43 → 4N 14:56
PROVIDERS: ADMIT Internal Medicine; ATTEND Internal Medicine
PROC: 02HV33Z Insertion of Infusion Device into Superior Vena Cava, Percutaneous Approach (ICD-10-PCS; principal; 2018-02-05)
DX: E87.0 Hyperosmolality and hypernatremia (principal); G92 Toxic encephalopathy; N17.9 Acute kidney failure, unspecified; N39.0 Urinary tract infection, site not specified; R53.1 Weakness; I50.9 Heart failure, unspecified; I25.10 Atherosclerotic heart disease of native coronary artery without angina pectoris; I11.0 Hypertensive heart disease with heart failure; E11.9 Type 2 diabetes mellitus without complications; E86.0 Dehydration; N95.0 Postmenopausal bleeding; Z66 Do not resuscitate; Z79.82 Long term (current) use of aspirin; Z79.4 Long term (current) use of insulin; Z79.51 Long term (current) use of inhaled steroids; Z79.899 Other long term (current) drug therapy
CPT/HCPCS: 36415; 70450; 71045; 76856; 80048; 80053; 81001; 82550; 82962; 83605; 83735; 84484; 85025; 85610; 85730; 87040; 87077; 87186; 93005; 93010; 93976; 96361; 96365; 99285; C1751; G8996-GN; G8997-GN; G8998-GN; J0696; J1642; J1650; J1815; J2060; J2997; J3480; J3490; J7030; J7060